=== PATIENT | female | born 1965 | race Caucasian/White ===

== ENCOUNTER 2016-11-07 18:11 | Inpatient (IN) | payer BC ==
--- NOTE | 2016-11-07 18:43 | ED PDOC ---
Arrival/HPI - General Chief Complaint: Syncope Time Seen by Provider: 11/07/16 18:12 Historian: Patient - History of Present Illness Narrative History of Present Illness (Text): 11/07/16 18:46 A 51 year old female, whose past medical history includes hypertension, presents to the emergency department for evaluation following syncopal episode early this afternoon, 6 hours prior to arrival. Patient states she was feeling dizzy while at work, sat down and passed out. Also reports blood pressure was low. Patient had a slight headache and discomfort, which she still has. Also feels slightly dizzy. Patient notes tongue felt heavy at that time and may had some slurred speech following the event. Denies any chest pain, palpitations, shortness of breath, visual disturbances or any other complaints at this time. No history of any trauma. Time/Duration: Other (6 hours) Symptom Onset: Sudden Symptom Course: Unchanged Context: Work Past Medical History - Provider Review Nursing Documentation Reviewed: Yes - Past History Past History: Non-Contributing - Infectious Disease Hx of Infectious Diseases: None - Tetanus Immunization Tetanus Immunization: Unknown - Cardiac Hx Cardiac Disorders: Yes Hx Hypertension: Yes - Pulmonary Hx Respiratory Disorders: No - Neurological Hx Neurological Disorder: Yes Hx Migraine: Yes Other/Comment: numbness on the face - HEENT Hx HEENT Disorder: No - Renal Hx Renal Disorder: No - Endocrine/Metabolic Hx Endocrine Disorders: No - Hematological/Oncological Hx Blood Disorders: No - Integumentary Hx Dermatological Disorder: No - Musculoskeletal/Rheumatological Hx Musculoskeletal Disorders: Yes Other/Comment: rib removed - Gastrointestinal Hx Gastrointestinal Disorders: No - Genitourinary/Gynecological Hx Genitourinary Disorders: No - Psychiatric Hx Psychophysiologic Disorder: No Hx Depression: No Hx Emotional Abuse: No Hx Physical Abuse: No Hx Substance Use: No - Surgical History Hx Appendectomy: Yes Hx Tonsillectomy: Yes Other/Comment: right 1st rib removed - Anesthesia Hx Anesthesia: Yes Hx Anesthesia Reactions: No Hx Malignant Hyperthermia: No - Suicidal Assessment Feels Threatened In Home Enviroment: No Family/Social History - Physician Review Nursing Documentation Reviewed: Yes Family/Social History: No Known Family HX Smoking Status: Never Smoked Hx Alcohol Use: No Hx Substance Use: No Hx Substance Use Treatment: No Allergies/Home Meds Allergies/Adverse Reactions: Allergies No Known Allergies Allergy (Verified 09/09/15 16:02) Home Medications: Home Meds Medication Instructions Recorded Confirmed Gabapentin [Neurontin] 600 mg PO BID 09/09/15 11/07/16 Losartan [Cozaar] 50 mg PO DAILY 09/09/15 11/07/16 tiZANidine [Zanaflex] 2 mg PO PRN PRN 09/09/15 11/07/16 Acetaminophen/Butalbital/Caf 1 tab PO DAILY PRN 11/07/16 11/07/16 [Fioricet] Zonisamide [Zonegran] 2 cap PO HS 11/07/16 11/07/16 Review of Systems - Physician Review All systems were reviewed & negative as marked: Yes - Review of Systems Eyes: absent: Vision Changes Respiratory: absent: SOB Cardiovascular: Syncope. absent: Chest Pain, Palpitations Neurological: Headache, Dizziness Physical Exam Vital Signs Reviewed: Yes Vital Signs Temp Pulse Resp BP Pulse Ox 11/07/16 20:11 75 17 124/80 99 11/07/16 18:18 97.7 F 78 18 127/82 98 Temperature: Afebrile Blood Pressure: Normal Pulse: Regular Respiratory Rate: Normal Appearance: Positive for: Well-Appearing, Non-Toxic, Comfortable Pain Distress: None Mental Status: Positive for: Alert and Oriented X 3 - Systems Exam Head: Present: Atraumatic, Normocephalic Pupils: Present: PERRL Extroacular Muscles: Present: EOMI Conjunctiva: Present: Normal Mouth: Present: Moist Mucous Membranes Neck: Present: Normal Range of Motion Respiratory/Chest: Present: Clear to Auscultation, Good Air Exchange. No: Respiratory Distress, Accessory Muscle Use Cardiovascular: Present: Regular Rate and Rhythm, Normal S1, S2. No: Murmurs Abdomen: Present: Normal Bowel Sounds. No: Tenderness, Distention, Peritoneal Signs Back: Present: Normal Inspection Upper Extremity: Present: Normal Inspection. No: Cyanosis, Edema Lower Extremity: Present: Normal Inspection. No: Edema Neurological: Present: GCS=15, CN II-XII Intact, Speech Normal Skin: Present: Warm, Dry, Normal Color. No: Rashes Psychiatric: Present: Alert, Oriented x 3, Normal Insight, Normal Concentration Medical Decision Making ED Course and Treatment: 11/07/16 18:36 Impression: A 51 year old female with dizziness and syncopal episode prior to arrival. Differential Diagnosis included but are not limited to: vasovagal syncope vs. cardiac arrhythmia vs. TIA vs. cerebral hemorrhage Plan: -- EKG -- chest xray -- CT head -- labs -- Reassess and disposition Prior Visits: Notes and results from previous visits were reviewed. Patient last reported to the emergency department on 09/09/15 for evaluation of left sided facial numbness, tingling and burning pain. Progress Notes: reviewed EKG, NSR at 66 bpm. Incomplete RBBB. Non-specific ST/T wave changes. 11/07/16 22:45 Reviewed radiology, CXR shows no acute processes. CT Head shows: matter disease. No edema. Ventricles: Unremarkable. No ventriculomegaly. Bones/joints: Unremarkable. No acute fracture. Soft tissues: Unremarkable. Sinuses: Unremarkable as visualized. No acute sinusitis. Mastoid air cells: Unremarkable as visualized. No mastoid effusion. IMPRESSION: No acute findings. 11/07/16 22:[address] Junior, who is aware and agrees with plan. Accepts pt in to her service. Pt will go to Telemetry observation for syncope. Requests Dr. Echeverria on consult. - Lab Interpretations Lab Results: 11/07/16 18:50 11/07/16 18:50 Lab Results 11/07/16 19:05: Urine Color Yellow, Urine Appearance Clear, Urine pH 6.5, Ur Specific Robbins <= 1.005, Urine Protein Negative, Urine Glucose (UA) Negative, Urine Ketones Negative, Urine Blood Negative, Urine Nitrate Negative, Urine Bilirubin Negative, Urine Urobilinogen 0.2, Ur Leukocyte Esterase Negative, Urine HCG, Qual Negative 11/07/16 18:50: WBC 8.1, RBC 3.66, Hgb 11.1 L, Hct 34.4 L, MCV 94.0, MCH 30.3, MCHC 32.3, RDW 14.4, Plt Count 264, MPV 10.6 11/07/16 18:50: Sodium 141, Potassium 4.0, Chloride 103, Carbon Dioxide 28, Anion Gap 14, BUN 13, Creatinine 0.6, Est GFR ( Amer) > 60, Est GFR (Non- Af Amer) > 60, Random Glucose 74, Calcium 9.2, Total Bilirubin 0.4, AST 43 H, ALT 37, Alkaline Phosphatase 103, Lactate Dehydrogenase 530, Total Creatine Kinase 60, Troponin I < 0.01, Total Protein 7.8, Albumin 4.3, Globulin 3.5, Albumin/Globulin Ratio 1.2 11/07/16 18:50: PT 10.5, INR 0.97, APTT 25.1 I have reviewed the lab results: Yes - RAD Interpretation Radiology Orders: 11/07/16 18:30 HEAD W/O CONTRAST [CT] Stat CHEST PORTABLE [RAD] Stat [employer] Custodian: ED Physician, Radiologist - EKG Interpretation Interpreted by ED Physician: Yes Type: 12 lead EKG - Medication Orders Current Medication Orders: Discontinued Medications Acetaminophen (Tylenol 325mg Tab) 650 mg PO STAT STA Stop: 11/07/16 21:41 Last Admin: 11/07/16 21:51 Dose: 650 mg - Scribe Statement The provider has reviewed the documentation as recorded by the Caleb Nicole Provider Scribe Attestation: All medical record entries made by the Sarahiibousmane were at my direction and personally dictated by me. I have reviewed the chart and agree that the record accurately reflects my personal performance of the history, physical exam, medical decision making, and the department course for this patient. I have also personally directed, reviewed, and agree with the discharge instructions and disposition. Disposition/Present on Arrival - Present on Arrival Any Indicators Present on Arrival: No History of DVT/PE: No History of Uncontrolled Diabetes: No Urinary Catheter: No History of Decub. Ulcer: No History Surgical Site Infection Following: None - Disposition Have Diagnosis and Disposition been Completed?: Yes Diagnosis: Syncope Disposition: HOSPITALIZED Disposition Time: 22:54 Patient Plan: Observation Condition: STABLE Discharge Instructions (ExitCare): Syncope (ED) Referrals: Manjeet Warren, [Non-Staff] - Follow up with primary
[2016-11-07 19:21] LABS: HEMOGLOBIN 11.1 gm/dL (12.0-16.0); MEAN CORPUSCULAR HEMOGLOBIN 30.3 pg (25.0-35.0); MEAN CORPUSCULAR HGB CONC 32.3 g/dl (31.0-37.0); MEAN PLATELET VOLUME 10.6 fl (7.0-11.0); RBC 3.66 10^6/uL (3.5-6.1); RED CELL DISTRIBUTION WIDTH 14.4 % (11.5-14.5); WHITE BLOOD COUNT 8.1 10^3/ul (4.5-11.0)
[2016-11-07 19:28] LABS: INR 0.97 (0.93-1.08); PARTIAL THROMBOPLASTIN TIME 25.1 Seconds (23.7-30.8); PROTHROMBIN TIME 10.5 Seconds (9.9-11.8)
[2016-11-07 19:35] LABS: ALB/GLOB RATIO 1.2 (1.1-1.8); ALBUMIN 4.3 g/dL (3.0-4.8); ALT/SGPT 37 U/L (7-56); AST/SGOT 43 U/L (15-39); BLOOD UREA NITROGEN 13 mg/dL (7-21); CALCIUM 9.2 mg/dL (8.4-10.5); GFR AFRICAN-AMERICAN > 60; GFR NON-AFRICAN AMERICAN > 60
[2016-11-07 19:38] LABS: HCG,QUALITATIVE URINE NEGATIVE (NEGATIVE); PH,URINE 6.5 (4.7-8.0); URINE APPEARANCE CLEAR (CLEAR); URINE BILIRUBIN NEGATIVE (NEGATIVE); URINE BLOOD NEGATIVE (NEGATIVE); URINE COLOR YELLOW (YELLOW); URINE GLUCOSE (UA) NEGATIVE (NEGATIVE); URINE LEUKOCYTE ESTERASE NEGATIVE Leu/uL (NEGATIVE); URINE NITRATE NEGATIVE (NEGATIVE); URINE PROTEIN NEGATIVE mg/dL (<30 mg/dL); URINE UROBILINOGEN 0.2 E.U./dL (<1 E.U./dL)
[2016-11-07 19:50] LABS: TROPONIN I < 0.01 ng/mL
[2016-11-08 01:41] VITALS: BMI 24.7
[2016-11-08] MEDS: Apap-Butalbital-Caffeine 325-50-40mg Tab PO PRN (08:17)
--- NOTE | 2016-11-08 08:28 | RAD ---
HISTORY: syncope COMPARISON: 09/09/2015 FINDINGS: LUNGS: No active pulmonary disease. PLEURA: No significant pleural effusion identified, no pneumothorax apparent. CARDIOVASCULAR: Normal. OSSEOUS STRUCTURES: No significant abnormalities. VISUALIZED UPPER ABDOMEN: Normal. OTHER FINDINGS: None. IMPRESSION: No active disease.
--- NOTE | 2016-11-08 08:46 | CT ---
PROCEDURE: CT HEAD WITHOUT CONTRAST. HISTORY: syncope COMPARISON: Prior head CT 09/09/2015 TECHNIQUE: Axial computed tomography images were obtained through the head/brain without intravenous contrast. Radiation dose: Total exam DLP = 853 mGy-cm. This CT exam was performed using one or more of the following dose reduction techniques: Automated exposure control, adjustment of the mA and/or kV according to patient size, and/or use of iterative reconstruction technique. FINDINGS: HEMORRHAGE: No intracranial hemorrhage. BRAIN: No mass effect or edema. No atrophy or chronic microvascular ischemic changes. VENTRICLES: Unremarkable. No hydrocephalus. CALVARIUM: Unremarkable. PARANASAL SINUSES: Resolution of prior left sphenoid sinusitis. MASTOID AIR CELLS: Unremarkable as visualized. No inflammatory changes. OTHER FINDINGS: None. IMPRESSION: Normal CT of the Head. No suspicious interval findings are appreciated and incidentally, prior left sphenoid sinusitis has resolved compared to prior head CT 09/09/2015. Preliminary report given by Jassi De Leon on 09/07/2016 at 21:43.
--- NOTE | 2016-11-08 09:37 | CP.PCM.CON ---
<Solomon Tyson - Last Filed: 11/08/16 14:42> History of Present Illness - History of Present Illness History of Present Illness: PGY-[address] Echeverria's Neurology Service: Reason for consult: syncope This is a 51 year old female with PMHx migraines (since age 6), HTN, unspecified lymph node malignancy who presented for evaluation of syncope in the afternoon. Patient felt dizzy at work and was about to get up. When patient got up, she lost consciousness and fell and hit her head on plastic garbage bins. Patient states that she felt lightheaded with a sensation of pressure diffusely around her head. Patient had numbness/tingling around the face bilaterally along with head pressure and weakness. Per EMR, patient has been seen in August 2015 for similar symptoms, but patient states that symptoms have been exacerbated recently within the past few weeks. 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 Patient was told that her blood pressure at the time was about 80/50. Per the chart, patient had some slurred speech but this has since resolved. At time of patient encounter this morning, patient reported that the symptoms have since subsided but still feels a bit lightheaded. Of note, patient was seen for similar symptoms in the past. Patient was prescribed Zonisamide which she has been taking for the past 2 weeks for these symptoms. 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 Family Hx: Father, nephew, and 1 more unknown family member with Brain Aneurysms Review of Systems - Constitutional Constitutional: absent: Headache, Weakness - Cardiovascular Cardiovascular: Lightheadedness. absent: Chest Pain - Respiratory Respiratory: absent: Dyspnea - Gastrointestinal Gastrointestinal: absent: Abdominal Pain, Nausea, Vomiting - Genitourinary Genitourinary: absent: Dysuria - Neurological Neurological: absent: Dizziness, Numbness, Headaches, Tingling, Weakness - Endocrine Endocrine: absent: Palpitations Past Patient History - Infectious Disease Hx of Infectious Diseases: None - Tetanus Immunizations Tetanus Immunization: Unknown - Past Social History Smoking Status: Never Smoked - CARDIAC Hx Hypertension: Yes - PULMONARY Hx Respiratory Disorders: No - NEUROLOGICAL Hx Neurological Disorder: Yes Hx Migraine: Yes Other/Comment: numbness on the face - HEENT Hx HEENT Problems: No - RENAL Hx Chronic Kidney Disease: No - ENDOCRINE/METABOLIC Hx Endocrine Disorders: No - HEMATOLOGICAL/ONCOLOGICAL Hx Blood Disorders: No - INTEGUMENTARY Hx Dermatological Problems: No - MUSCULOSKELETAL/RHEUMATOLOGICAL Hx Falls: Yes - GASTROINTESTINAL Hx Gastrointestinal Disorders: No - GENITOURINARY/GYNECOLOGICAL Hx Genitourinary Disorders: No - PSYCHIATRIC Hx Psychophysiologic Disorder: No Hx Depression: No Hx Emotional Abuse: No Hx Physical Abuse: No Hx Substance Use: No - SURGICAL HISTORY Hx Appendectomy: Yes Hx Tonsillectomy: Yes Other/Comment: right 1st rib removed - ANESTHESIA Hx Anesthesia: Yes Hx Anesthesia Reactions: No Hx Malignant Hyperthermia: No Meds Allergies/Adverse Reactions: Allergies Allergy/AdvReac Type Severity Reaction Status Date / Time No Known Allergies Allergy Verified 09/09/15 16:02 - Medications Medications: Current Medications Acetaminophen/Butalbital/Caffeine (Fioricet) 1 tab PO DAILY PRN PRN Reason: Migraine headache Last Admin: 11/08/16 08:17 Dose: 1 tab Gabapentin (Neurontin) 600 mg PO BID [facility] PRN Reason: Protocol Losartan Potassium (Cozaar) 50 mg PO DAILY [facility] Physical Exam - Constitutional Appears: Non-toxic, No Acute Distress - Head Exam Head Exam: ATRAUMATIC, NORMAL INSPECTION, NORMOCEPHALIC - Eye Exam Eye Exam: EOMI, PERRL - ENT Exam ENT Exam: Mucous Membranes Moist - Respiratory Exam Respiratory Exam: Clear to Auscultation Bilateral - Cardiovascular Exam Cardiovascular Exam: Bradycardia - GI/Abdominal Exam GI & Abdominal Exam: Normal Bowel Sounds - Neurological Exam Neurological exam: Alert, CN II-XII Intact (with exception of increased sensations in V1,V2,V3 regions on the right side of the face), Oriented x3 Additional comments: Manual muscle testing 5/5 bilateral upper and lower extremities. Reflexes 2/4 in right upper extremity. Reflexes 1/4 left upper extremity and bilateral lower extremities. No pronator drift. Normal finger-nose test. Down-going plantar responses. Sensations intact x 4 extremities. Results - Vital Signs Recent Vital Signs: Last Vital Signs Temp 98 F 11/08/16 06:00 Pulse 55 L 11/08/16 06:00 Resp 19 07/18/17 06:00 BP 119/74 11/08/16 06:00 Pulse Ox 97 11/08/16 06:00 - Labs Result Diagrams: 11/07/16 18:50 11/07/16 18:50 Assessment & Plan - Assessment and Plan (Free Text) Assessment: This is a 51 year old female with PMHx migraines (since age 6), HTN, unspecified lymph node malignancy who presented for evaluation of syncope. Syncopal episode likely due to episode of poor cerebral hypoperfusion secondary to episode of transient hypotension as well as ongoing episodes of bradycardia. CT head unremarkable for acute ischemic or hemorrhagic pathologies. Patient is chronically anemic. Patient's recent outpatient workup as noted below. MRA Neck-Carotid done 10/20/16 at [facility] 1) Kinking and coiling of the right cervical internal carotid artery. 2) Left carotid and both vertebral arteries in the neck show no evidence of stenosis or occlusive disease. MRA Head done 10/20/16 at [facility] 1) No significant intracranial arterial abnormalities seen. 2) No aneurysms are identified on present exam. Images are of limited resolution done on the open low field imaging system. Small aneurysms may not be demonstrated on present examination. 3) Recommend MR angiogram on a high-field high-resolution imaging system if there is high index of clinical suspicion of aneurysm. 4) Recommend MRI examination of brain for further evaluation. Plan: 1) Maintain adequate hydration. 2) Keep SBP between 120-130 mmHg. 3) Follow up MRI brain 4) Follow up MRA Head Case Discussed with Dr. Juwan Tyson PGY-1 - Date & Time Date: 11/08/16 Time: 09:51 <Romario Echeverria - Last Filed: 11/08/16 18:03> Meds - Medications Medications: Current Medications Acetaminophen/Butalbital/Caffeine (Fioricet) 1 tab PO DAILY PRN PRN Reason: Migraine headache Last Admin: 11/08/16 08:17 Dose: 1 tab Gabapentin (Neurontin) 600 mg PO BID [facility] PRN Reason: Protocol Last Admin: 11/08/16 09:52 Dose: 600 mg Valproate Sodium 500 mg/ (Sodium Chloride) 105 mls @ 100 mls/hr IVPB ONCE ONE Stop: 11/08/16 18:27 Magnesium Sulfate 2 gm/ Sodium (Chloride) 104 mls @ 102 mls/hr IVPB ONCE ONE Stop: 11/08/16 18:46 Losartan Potassium (Cozaar) 50 mg PO DAILY [facility] Last Admin: 11/08/16 09:53 Dose: 50 mg Results - Vital Signs Recent Vital Signs: Last Vital Signs Temp 97.3 F L 11/08/16 11:33 Pulse 56 L 11/08/16 11:33 Resp 20 11/08/16 11:33 BP 108/71 11/08/16 11:33 Pulse Ox 97 11/08/16 06:00 - Labs Result Diagrams: 11/07/16 18:50 11/07/16 18:50 Attending/Attestation - Attestation I have personally seen and examined this patient.: Yes I have fully participated in the care of the patient.: Yes I have reviewed all pertinent clinical information: Yes Notes (Text): 11/08/16 18:00 SYNCOPE SEC TO TRANSIENT CEREBRAL HYPOPERFUSION/POSSIBLY BRADYCARDIA. -SHE HAS ACTIVE MIGRAINES AND GAVE HER COCKTAIL OF SOLUMERDROL 500MG IV, VALPROIC ACID 500MG IV SLOWLY INFUSED UNDER 60 MINUTES, BENADRYL 50 MG IV, 2 GM MG SULPHATE, AND ZOFRAN IV 4 MNG X 1 DOSE OF EACH AND WILL REPEAT TWICE TO DAY., -C/W ZONEGRAM FOR HER MIGRAINES AND FOLLOW UP OUTPATIENT WITH ME. NEUROLOGICALLY STABLE. Harmeet ECHEVERRIA MD
[2016-11-08] MEDS ORDERED: Valproate 500 MG in Sodium Chloride 0.9% 100 ML IVPB ONE ×2 (11:47→17:25)
[2016-11-08] MEDS ORDERED: DiphenhydrAMINE 50 mg/ml Inj IVP ONE ×2 (11:48→17:19)
[2016-11-08] MEDS ORDERED: methylPREDNISolone 500 MG in Sodium Chloride 0.9% 100 ML IVPB ONE ×2 (11:49→17:27)
[2016-11-08] MEDS ORDERED: Magnesium Sulfate 1 gm in D5W 1 GM/100 ML BAG IVPB ONE ×2 (11:50→17:16)
[2016-11-08] MEDS ORDERED: Gadodiamide 287 MG/ML VIAL (15ML) IV ONE (16:24)
--- NOTE | 2016-11-08 16:48 | MRI ---
PROCEDURE: Magnetic Resonance Angiography Brain HISTORY: SYNCOPE MIGRAINE COMPARISON: None available. TECHNIQUE: 3D time of flight MR angiography of the intracranial arteries was performed. Rotating maximum intensity projection images were generated. FINDINGS: INTERNAL CEREBRAL ARTERIES: Unremarkable. The skull base, petrous, cavernous and supraclinoid segments are bilaterally widely patient. ANTERIOR CEREBRAL ARTERIES: There is a small hypoplastic left A1 segment. The anterior cerebral is are supplied from the right side. MIDDLE CEREBRAL ARTERIES: Unremarkable. M1 and M2 segments are widely patent. Perisylvian branches grossly symmetric. POSTERIOR CIRCULATION: Basilar Artery: Unremarkable. Distal Vertebral Arteries: Unremarkable. Posterior Cerebral Arteries: Left posterior cerebral artery arises from the left internal carotid Posterior Inferior Cerebellar Arteries: Unremarkable. ANEURYSM/ VASCULAR MALFORMATIONS: None. OTHER FINDINGS: None. IMPRESSION: Unremarkable MR angiography of the brain.
--- NOTE | 2016-11-08 16:51 | MRI ---
PROCEDURE: MRI BRAIN WITH AND WITHOUT CONTRAST HISTORY: MIGRAINES SYNCOPE COMPARISON: None. TECHNIQUE: Multiplanar, multisequence MR images of the brain were obtained with and without intravenous contrast enhancement. 15 cc of Omniscan FINDINGS: HEMORRHAGE: None DWI: No evidence of an acute or early subacute infarction. BRAIN PARENCHYMA: No mass,mass effect or edema. No atrophy or chronic microvascular ischemic changes. ENHANCEMENT: No abnormal intracranial enhancement. VENTRICLES: Unremarkable. No hydrocephalus. CRANIUM: Unremarkable. ORBITS: Grossly unremarkable. PARANASAL SINUSES/MASTOIDS: Clear VASCULAR SYSTEM: Skull base flow voids intact. OTHER FINDINGS: None . IMPRESSION: Unremarkable pre and post contrast enhanced MRI of the brain.
[2016-11-08] MEDS ORDERED: Magnesium Sulfate 2 GM in Sodium Chloride 0.9% 100 ML IVPB ONE (17:45)
--- NOTE | 2016-11-08 23:58 | CARD ---
APPROVED REPORT EKG Measurement Heart [id number] <Conclusion> Normal sinus rhythm Incomplete right bundle branch block Borderline ECG
[2016-11-09 07:12] LABS: HEMOGLOBIN 11.6 gm/dL (12.0-16.0); MEAN CELL VOLUME 94.1 fL (80.0-105.0); MEAN CORPUSCULAR HEMOGLOBIN 29.6 pg (25.0-35.0); MEAN CORPUSCULAR HGB CONC 31.4 g/dl (31.0-37.0); MEAN PLATELET VOLUME 10.4 fl (7.0-11.0); RBC 3.92 10^6/uL (3.5-6.1); RED CELL DISTRIBUTION WIDTH 14.5 % (11.5-14.5); WHITE BLOOD COUNT 5.2 10^3/ul (4.5-11.0)
--- NOTE | 2016-11-09 07:18 | HP ---
CHIEF COMPLAINT: Syncopal attack. HISTORY OF PRESENT ILLNESS: The patient is a 51-year-old female with past medical history of hypertension, came to the emergency department for syncopal attack. The patient states she was feeling dizzy while at work, sat down ,and passed out. Also reports blood pressure was low at that moment, otherwise she has history of hypertension. Had headache and discomfort and still feels dizzy. According to the patient, she is feeling her tongue is heavy and numb and sometimes slurring of speech followed by this event. No chest pain or palpitation. No visual disturbances. No nausea, vomiting, or diarrhea. No history of trauma. PAST MEDICAL HISTORY: Hypotension, migraine, numbness of the face, history of rib removed, appendectomy and tonsillectomy, right first rib removed. FAMILY HISTORY: Father and mother noncontributory. HABITS: Never smoked. No drugs. No ethanol. ALLERGIES: The patient is not allergic to any medication. HOME MEDICATIONS: Neurontin, Cozaar, Xanax, Celexa, Florocid, Zonegran. REVIEW OF SYSTEMS: The patient was examined on the bedside in the telemetry, still complaining of sometime dizzy, numbness of the tongue and lips, sometime headaches. No shortness of breath. No nausea, vomiting or diarrhea. No hematuria, hematochezia. No swelling of the legs. No chest pain. PHYSICAL EXAMINATION: VITAL SIGNS: Temperature 97.6, pulse 72, blood pressure 108/71 and respiratory rate 20. HEENT: Head is normocephalic and atraumatic. Eyes PERRLA. EOMs intact. Conjunctivae clear. Nose patent. Mucous membranes moist. NECK: Supple. No carotid bruit or thyromegaly. CHEST: Bilaterally symmetrical. HEART: S1 and S2 positive. LUNGS: Clear to auscultation. ABDOMEN: Soft. Bowel sounds present. No organomegaly. EXTREMITIES: No edema, no cyanosis. NEUROLOGIC: The patient is awake and alert. Moving all 4 extremities. No focal deficit. LABORATORY DATA: White blood cells 8.1, hemoglobin 11.1, hematocrit 34.4, platelets 14.4. Sodium 141, potassium 4.0, BUN 13, creatinine 0.6, glucose of 95, AST 43. ASSESSMENT AND PLAN: The patient is a 51-year-old lady with abnormal liver function test, anemia, came with syncopal attack, underwent CAT scan of the head, brain MRI and head MRA, seen by the neurologist, Dr. Romario Echeverria. History of migraine, hypotension, unspecified lymph node malignancy, history of right first rib removal, thoracic outlet syndrome, history of splenectomy. According to Dr. Echeverria, syncopal episode looks like due to poor cerebral hypoperfusion and second episode of transient hypotension as well as ongoing episodes of bradycardia. CT scan of head is unremarkable for acute ischemia or hemorrhagic pathology. MRA of the neck showed , radiology kinking and widening of the right cervical internal carotid artery, left carotid artery and both vertebral arteries in the neck show no evidence of stenosis or obstruction. MRA of the head done on 10/20/2016, shows no significant intracranial arterial abnormalities. No aneurysm. Recommending MR angiogram on the high resolution. Reviewed Dr. Romario Echeverria's notes. We will follow up. Alana Junior MD ALFREDO
[2016-11-09 07:36] LABS: BLOOD UREA NITROGEN 11 mg/dL (7-21); CALCIUM 9.3 mg/dL (8.4-10.5); GFR AFRICAN-AMERICAN > 60; GFR NON-AFRICAN AMERICAN > 60; HDL CHOLESTEROL 67 mg/dL (29-60)
[2016-11-09 07:46] LABS: % IRON SATURATION 48 % (20-55); IRON 157 ug/dL (45-180); TOTAL IRON BINDING CAPACITY 325 ug/dL (265-497)
[2016-11-09 07:47] LABS: LDL CHOLESTEROL 97 mg/dL (0-129)
[2016-11-09] MEDS: Apap-Butalbital-Caffeine 325-50-40mg Tab PO PRN ×2 (08:00→20:05)
--- NOTE | 2016-11-09 10:31 | CP.PCM.PN ---
Subjective - Date & Time of Evaluation Date of Evaluation: 11/09/16 Time of Evaluation: 10:10 - Subjective Subjective: PGY-1 Neurology Progress note for Dr. Echeverria: CC: dizziness and headache Patient seen and examined at bedside. Complains of feeling dizzy and states that her migraine symptoms have returned at the same intensity as yesterday. Also complains of right sided facial numbness. Denies changes in vision, weakness. Objective - Vital Signs/Intake and Output Vital Signs (last 24 hours): Temp Pulse Resp BP Pulse Ox 98.2 F 61 18 82/52 L 95 11/09/16 06:00 11/09/16 09:19 11/09/16 09:00 11/09/16 09:19 11/09/16 09:00 Intake and Output: 11/09/16 11/09/16 06:59 18:59 Intake Total 540 Output Total 300 Balance 240 - Medications Medications: Current Medications Acetaminophen/Butalbital/Caffeine (Fioricet) 1 tab PO DAILY PRN PRN Reason: Migraine headache Last Admin: 11/09/16 08:00 Dose: 1 tab Gabapentin (Neurontin) 600 mg PO BID IAN PRN Reason: Protocol Last Admin: 11/09/16 10:02 Dose: 600 mg Sodium Chloride (Sodium Chloride 0.9%) 1,000 mls @ 100 mls/hr IV .Q10H IAN Stop: 11/10/16 23:59 Losartan Potassium (Cozaar) 50 mg PO DAILY [facility] Last Admin: 11/09/16 09:19 Dose: Not Given Zonisamide (Zonegran) 100 mg PO HS IAN - Labs Labs: 11/09/16 06:30 11/09/16 06:30 PT 10.5 Seconds (9.9-11.8) 11/07/16 18:50 INR 0.97 (0.93-1.08) 11/07/16 18:50 APTT 25.1 Seconds (23.7-30.8) 11/07/16 18:50 - Constitutional Appears: Non-toxic, No Acute Distress - Head Exam Head Exam: ATRAUMATIC, NORMAL INSPECTION, NORMOCEPHALIC - Eye Exam Eye Exam: EOMI, PERRL - ENT Exam ENT Exam: Mucous Membranes Moist - Respiratory Exam Respiratory Exam: Clear to Ausculation Bilateral - Cardiovascular Exam Cardiovascular Exam: REGULAR RHYTHM - GI/Abdominal Exam GI & Abdominal Exam: Normal Bowel Sounds - Neurological Exam Neurological Exam: Alert, Awake, CN II-XII Intact (except for decreased sensation on the right side of the face), Oriented x3 Additional comments: Manual muscle testing 5/5 bilateral upper and lower extremities. Reflexes 2/4 in right upper extremity. Reflexes 1/4 left upper extremity and bilateral lower extremities. No pronator drift. Normal finger-nose test. Down-going plantar responses. Sensations intact x 4 extremities. Assessment and Plan - Assessment and Plan (Free Text) Assessment: This is a 51 year old female with PMHx migraines (since age 6), HTN, unspecified lymph node malignancy who presented for evaluation of syncope. Syncopal episode likely due to episode of poor cerebral hypoperfusion secondary to episode of transient hypotension as well as ongoing episodes of bradycardia. CT head unremarkable for acute ischemic or hemorrhagic pathologies. Patient is chronically anemic. Patient's recent workup as noted below. Evidence of orthostatic hypotension as seen in the vitals taken in the morning. MRA Head and MRI brain done in [facility] on 11/08/16 were unremarkable. MRA Neck-Carotid done 10/20/16 at [facility] 1) Kinking and coiling of the right cervical internal carotid artery. 2) Left carotid and both vertebral arteries in the neck show no evidence of stenosis or occlusive disease. MRA Head done 10/20/16 at [facility] 1) No significant intracranial arterial abnormalities seen. 2) No aneurysms are identified on present exam. Images are of limited resolution done on the open low field imaging system. Small aneurysms may not be demonstrated on present examination. 3) Recommend MR angiogram on a high-field high-resolution imaging system if there is high index of clinical suspicion of aneurysm. 4) Recommend MRI examination of brain for further evaluation. Plan: 1) Maintain adequate hydration. 2) Keep SBP between 120-130 mmHg. 3) Follow up echocardiogram. 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 6) Neurontin increased frequency to 600 mg TID 7) Restarted home medication Zonisamide Case Discussed with Dr. Juwan Tyson PGY-1
[2016-11-09] MEDS ORDERED: DiphenhydrAMINE 50 mg/ml Inj IVP STA (10:33)
[2016-11-09] MEDS ORDERED: Valproate 500 MG in Sodium Chloride 0.9% 100 ML IVPB ONE (10:33)
[2016-11-09] MEDS: Sodium Chloride 0.9% 1,000 ML IV SCH (11:45)
[2016-11-09 12:52] LABS: FOLATE 6.3 ng/mL
--- NOTE | 2016-11-09 16:36 | CARD ---
APPROVED REPORT EXAM: Two-dimensional and M-mode echocardiogram with Doppler and color Doppler. INDICATION Syncope R/O STRUCTURAL HEART DISEASE 2D DIMENSIONS Left Atrium (2D)4.3 (1.6-4.0cm)IVSd0.9 (0.7-1.1cm) LVDd4.5 (3.9-5.9cm)PWd0.9 (0.7-1.1cm) LVDs3.2 (2.5-4.0cm)FS (%) 27.8 % LVEF (%)54.0 (>50%) M-Mode DIMENSIONS Aortic Root3.70 (2.2-3.7cm)Aortic Cusp Exc.2.10 (1.5-2.0cm) Aortic Valve AoV Peak Wlcimbpq992.0cm/[place] Peak GR.6mmHg Mitral Valve MV E Mgilgahf54.2cm/sMV A Yncbrugi40.2cm/sE/A ratio1.0 TDI Lateral E' Peak V7.90cm/sMedial E' Peak V7.41cm/sE/Lateral E'7.9 E/Medial E'8.4 Pulmonary Valve PV Peak Dvfmnshk35.9cm/sPV Peak Grad.1mmHg Tricuspid Valve TR Peak Mfurdnfz594fm/sRAP UXSYVEPU36kmNdOS Peak Gr.23mmHg [id number] LEFT VENTRICLE The left ventricle is normal size. There is normal left ventricular wall thickness. The left ventricular function is normal.EF-55 There is normal LV segmental wall motion. Transmitral Doppler flow pattern is Grade III-reversible restrictive diastolic dysfunction. No left ventricle thrombus noted on this study. There is no ventricular septal defect visualized. There is no left ventricular aneurysm. There is no mass noted in the left ventricle. RIGHT VENTRICLE The right ventricle is normal size. There is normal right ventricular wall thickness. The right ventricular systolic function is normal. ATRIA The left atrium is mildly dilated. The right atrium is borderline dilated. The interatrial septum is intact with no evidence for an atrial septal defect. AORTIC VALVE The aortic valve is thickened but opens well. There is trace aortic regurgitation. There is no aortic valvular stenosis. There is no aortic valvular vegetation. MITRAL VALVE The mitral valve is thickened but opens well. Mitral annular calcification is mild. Mitral regurgitation is trace to mild. There is no mitral valve stenosis. There is no evidence of mitral valve prolapse. TRICUSPID VALVE The tricuspid valve leaflets are thickened , but open well. There is trace to mild tricuspid regurgitation.RVSP-33 mof h g. There is no tricuspid valve stenosis. There is no tricuspid valve prolapse or vegetation. PULMONIC VALVE The pulmonary valve is normal in structure. There is no pulmonic valvular regurgitation. There is no pulmonic valvular stenosis. GREAT VESSELS The aortic root is normal in size. The ascending aorta is normal in size. The pulmonary artery is normal. The IVC is normal in size and collapses >50% with inspiration. PERICARDIAL EFFUSION There is no pleural effusion. There is no pericardial effusion. <Conclusion> The left ventricle is normal size. There is normal left ventricular wall thickness. The left ventricular function is normal.EF-55 There is normal LV segmental wall motion. There is trace aortic regurgitation. Mitral regurgitation is trace to mild. There is trace to mild tricuspid regurgitation.RVSP-33 mof h g. The IVC is normal in size and collapses >50% with inspiration. There is no pericardial effusion. No thrombus or vegetation noted.
--- NOTE | 2016-11-09 21:59 | CP.PCM.PN ---
Subjective - Date & Time of Evaluation Date of Evaluation: 11/09/16 Time of Evaluation: 10:00 - Subjective Subjective: Patient seen and examined at bedside. Complains of feeling dizzy and states that her migraine symptoms have returned at the same intensity as yesterday. Also complains of right sided facial numbness. Denies changes in vision, weakness. no n.v , got Echo today . d/d with dr Echeverria and his team , treatment plan d/d with pt Objective - Vital Signs/Intake and Output Vital Signs (last 24 hours): Temp Pulse Resp BP Pulse Ox 96.8 F L 69 16 97/65 L 95 11/09/16 20:46 11/09/16 20:46 11/09/16 20:46 11/09/16 20:46 11/09/16 09:00 Intake and Output: 11/09/16 11/10/16 18:59 06:59 Intake Total 540 Output Total 300 Balance 240 - Medications Medications: Current Medications Acetaminophen/Butalbital/Caffeine (Fioricet) 1 tab PO Q4H PRN PRN Reason: migraine Last Admin: 11/09/16 20:05 Dose: 1 tab Gabapentin (Neurontin) 600 mg PO TID IAN PRN Reason: Protocol Last Admin: 11/09/16 17:07 Dose: 600 mg Sodium Chloride (Sodium Chloride 0.9%) 1,000 mls @ 100 mls/hr IV .Q10H IAN Stop: 11/10/16 23:59 Last Admin: 11/09/16 11:45 Dose: 100 mls/hr Losartan Potassium (Cozaar) 50 mg PO DAILY IAN Last Admin: 11/09/16 09:19 Dose: Not Given Metoclopramide HCl (Reglan) 10 mg IVP ACHS IAN Last Admin: 11/09/16 21:15 Dose: 10 mg Zonisamide (Zonegran) 100 mg PO HS IAN Last Admin: 11/09/16 21:15 Dose: 100 mg - Labs Labs: 11/09/16 06:30 11/09/16 06:30 PT 10.5 Seconds (9.9-11.8) 11/07/16 18:50 INR 0.97 (0.93-1.08) 11/07/16 18:50 APTT 25.1 Seconds (23.7-30.8) 11/07/16 18:50 - Constitutional Appears: Well - Head Exam Head Exam: ATRAUMATIC, NORMAL INSPECTION, NORMOCEPHALIC - Eye Exam Eye Exam: EOMI, Normal appearance, PERRL Pupil Exam: NORMAL ACCOMODATION, PERRL - ENT Exam ENT Exam: Normal External Ear Exam - Neck Exam Neck Exam: Full ROM, Normal Inspection. absent: Lymphadenopathy - Respiratory Exam Respiratory Exam: Clear to Ausculation Bilateral, NORMAL BREATHING PATTERN - Cardiovascular Exam Cardiovascular Exam: REGULAR RHYTHM, +S1, +S2. absent: Murmur - GI/Abdominal Exam GI & Abdominal Exam: Soft, Normal Bowel Sounds. absent: Tenderness - Extremities Exam Extremities Exam: Full ROM, Normal Capillary Refill, Normal Inspection. absent : Joint Swelling, Pedal Edema - Back Exam Back Exam: NORMAL INSPECTION - Neurological Exam Neurological Exam: Alert, Awake, CN II-XII Intact, Normal Gait, Oriented x3 - Psychiatric Exam Psychiatric exam: Normal Affect, Normal Mood - Skin Skin Exam: Dry, Intact, Normal Color, Warm Assessment and Plan (1) Migraine Status: Acute (2) Anemia Status: Acute (3) Lymph node cancer Status: Acute (4) H/O: HTN (hypertension) Status: Acute (5) Orthostatic hypertension Status: Acute (6) Bradycardia Status: Acute - Assessment and Plan (Free Text) Assessment: This is a 51 year old female with PMHx migraines (since age 6), HTN, unspecified lymph node malignancy who presented for evaluation of syncope. Syncopal episode likely due to episode of poor cerebral hypoperfusion secondary to episode of transient hypotension as well as ongoing episodes of bradycardia. CT head unremarkable for acute ischemic or hemorrhagic pathologies. Patient is chronically anemic. Patient's recent workup as noted below. Evidence of orthostatic hypotension as seen in the vitals taken in the morning. Plan: 1) Maintain adequate hydration. 2) Keep SBP between 120-130 mmHg. 3) Follow up echocardiogram. Patient is also receiving 24H Holter Monitor 4) Follow up boat loader recommendations 5) Combination of Benadryl 50 mg, Valproic Acid 500 mg, Reglan 10 mg, Toradol 30mg IV for abortive therapy for migraines. 6) Neurontin increased frequency to 600 mg TID 7) Restarted home medication Zonisamide d/d with dr echeverria team ,
[2016-11-10] MEDS: Sodium Chloride 0.9% 1,000 ML IV SCH ×3 (01:18→15:55)
[2016-11-10] MEDS: Apap-Butalbital-Caffeine 325-50-40mg Tab PO PRN ×4 (05:46→23:59)
[2016-11-10 07:12] LABS: ALB/GLOB RATIO 1.1 (1.1-1.8); ALBUMIN 3.5 g/dL (3.0-4.8); ALT/SGPT 32 U/L (7-56); AST/SGOT 33 U/L (15-39); BLOOD UREA NITROGEN 12 mg/dL (7-21); CALCIUM 8.7 mg/dL (8.4-10.5); GFR AFRICAN-AMERICAN > 60; GFR NON-AFRICAN AMERICAN > 60
[2016-11-10 07:28] LABS: BASO # 0.02 K/mm3 (0.0-2.0); BASO % 0.2 % (0.0-3.0); EOS % 0.2 % (1.5-5.0); GRAN # 3.83 (1.4-6.5); GRAN % 35.1 % (50.0-68.0); HEMOGLOBIN 10.6 gm/dL (12.0-16.0); LYMPH % 55.1 % (22.0-35.0); MEAN CORPUSCULAR HEMOGLOBIN 30.2 pg (25.0-35.0); MEAN CORPUSCULAR HGB CONC 31.5 g/dl (31.0-37.0); MEAN PLATELET VOLUME 11.6 fl (7.0-11.0); MONO % 9.4 % (1.0-6.0); PLATELET COUNT 261 10^3/uL (120.0-450.0); RBC 3.51 10^6/uL (3.5-6.1); RED CELL DISTRIBUTION WIDTH 14.9 % (11.5-14.5); WHITE BLOOD COUNT 10.9 10^3/ul (4.5-11.0)
--- NOTE | 2016-11-10 07:54 | CON ---
DATE: 11/09/2016 CONSULT SERVICE: Cardiology. REASON FOR CONSULTATION: Syncopal episodes. 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 Yesterday, had a syncopal episode in office, brought here. Cardiology consult was called for evaluation. The patient says that she parked her car and went to the office and felt that she was going to have headache. She felt that she would start migraine and blurring of the vision, then patient completely passed out and had no recollection of when she gained conscious. The office *------* tried to wake her up. At that time, noticed the blood pressure was 80 and pulse was not recordable, so 911 was called and the patient was brought here. Patient denies any chest pain, denies any shortness of breath, denies any palpitations. 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 PAST SURGICAL HISTORY: Significant as mentioned; removal of first rib because of the superior vena cava syndrome thoracic outlet obstruction, superior vena cava syndrome, blood clot, history of tonsillectomy, history of appendectomy, history of breast reduction surgery in the past, history of lymph node biopsy 4 years ago, suspicious for malignancy, but found to be negative. FAMILY HISTORY: Significant for coronary artery disease, father and mother both had significant coronary artery disease, premature coronary artery disease in the family. SOCIAL HISTORY: Denies any history of alcohol abuse. ALLERGIES: NO KNOWN DRUG ALLERGY. CURRENT MEDICATIONS: Patient is on Neurontin, Cozaar for high blood pressure, Xanax, Celexa and Zonegran for migraine. REVIEW OF SYSTEMS: 14-point review of systems as per HPI. PHYSICAL EXAMINATION: VITAL SIGNS: Temperature afebrile. Heart rate 61, blood pressure 110/47. HEENT: PERRLA. Extraocular muscles are intact. NECK: Supple. No carotid bruit. No thyromegaly. CHEST: Clear to auscultation. HEART: S1 and S2 regular. ABDOMEN: Soft. EXTREMITIES: Clubbing and cyanosis negative. LABORATORY DATA: Blood workup as follows. WBC 5.2, hemoglobin 11.6, hematocrit 36.9, platelet count 280. Chemistry shows sodium 140, potassium 4.4, chloride 109, carbon dioxide 24, anion gap of 15, BUN 11, creatinine 0.5. IMPRESSION: Syncope, rule out vasovagal, rule out orthostatic hypotension, rule out structural heart disease. RECOMMENDATION: We will do orthostatic hypotension, add lipid profile, TSH, hemoglobin A1c, echo to rule out any structural heart disease and further recommendation after orthostatic change. Suggested stress test *------* risk factor for coronary artery disease. Family history is significant for coronary artery disease, suggest a stress test as outpatient. We will also put Holter monitor to rule out any bradyarrhythmia. We will follow with you. Thank you *------* for the opportunity of taking care of Gómez Juarez. Alba Gonzalez MD
[2016-11-10] MEDS ORDERED: methylPREDNISolone 500 MG in Sodium Chloride 0.9% 100 ML IVPB ONE (14:38)
[2016-11-10] MEDS ORDERED: DiphenhydrAMINE 50 mg/ml Inj IM ONE (14:39)
--- NOTE | 2016-11-10 15:12 | CP.PCM.PN ---
<Solomon Tyson - Last Filed: 11/10/16 15:08> Subjective - Date & Time of Evaluation Date of Evaluation: 11/10/16 Time of Evaluation: 10:00 - Subjective Subjective: PGY-1 Neurology Progress note for Dr. Echeverria: CC: dizziness and headache This morning the patient complains of feeling slightly dizzy with return of migraines. Also complains of the right sided facial numbness associated. Denies changes in vision, weakness. Objective - Vital Signs/Intake and Output Vital Signs (last 24 hours): Temp Pulse Resp BP Pulse Ox 98.2 F 55 L 16 143/84 97 11/10/16 12:00 11/10/16 12:00 11/10/16 12:00 11/10/16 12:00 11/10/16 05:42 Intake and Output: 11/10/16 11/10/16 06:59 18:59 Intake Total 2240 Balance 2240 - Medications Medications: Current Medications Acetaminophen/Butalbital/Caffeine (Fioricet) 1 tab PO Q4H PRN PRN Reason: migraine Last Admin: 11/10/16 12:34 Dose: 1 tab Famotidine (Pepcid) 40 mg PO HS IAN Gabapentin (Neurontin) 600 mg PO TID IAN PRN Reason: Protocol Last Admin: 11/10/16 10:41 Dose: 600 mg Sodium Chloride (Sodium Chloride 0.9%) 1,000 mls @ 100 mls/hr IV .Q10H IAN Stop: 11/11/16 23:59 Last Admin: 11/10/16 07:50 Dose: 100 mls/hr Metoclopramide HCl (Reglan) 10 mg IVP ACHS IAN Last Admin: 11/10/16 12:29 Dose: 10 mg Zonisamide (Zonegran) 100 mg PO HS IAN Last Admin: 11/09/16 21:15 Dose: 100 mg - Labs Labs: 11/10/16 06:38 11/10/16 06:38 PT 10.5 Seconds (9.9-11.8) 11/07/16 18:50 INR 0.97 (0.93-1.08) 11/07/16 18:50 APTT 25.1 Seconds (23.7-30.8) 11/07/16 18:50 - Constitutional Appears: Non-toxic, No Acute Distress - Head Exam Head Exam: ATRAUMATIC, NORMAL INSPECTION, NORMOCEPHALIC - Eye Exam Eye Exam: EOMI, PERRL - ENT Exam ENT Exam: Mucous Membranes Moist - Respiratory Exam Respiratory Exam: Clear to Ausculation Bilateral - Cardiovascular Exam Cardiovascular Exam: REGULAR RHYTHM - GI/Abdominal Exam GI & Abdominal Exam: Normal Bowel Sounds - Neurological Exam Neurological Exam: Alert, Awake, CN II-XII Intact (except for decreased sensations on the right side of her face), Oriented x3 Additional comments: Manual muscle testing 5/5 bilateral upper and lower extremities. Reflexes 2/4 in right upper extremity. Reflexes 1/4 left upper extremity and bilateral lower extremities. No pronator drift. Normal finger-nose test. Down-going plantar responses. Sensations intact x 4 extremities. Assessment and Plan - Assessment and Plan (Free Text) Assessment: This is a 51 year old female with PMHx migraines (since age 6), HTN, unspecified lymph node malignancy who presented for evaluation of syncope. Syncopal episode likely due to episode of poor cerebral hypoperfusion secondary to episode of transient hypotension as well as ongoing episodes of bradycardia. CT head unremarkable for acute ischemic or hemorrhagic pathologies. Patient is chronically anemic. Patient's recent workup as noted below. Evidence of orthostatic hypotension. Echocardiogram showed EF 54%. MRA Head and MRI brain done in [facility] on 11/08/16 were unremarkable. MRA Neck-Carotid done 10/20/16 at [facility] 1) Kinking and coiling of the right cervical internal carotid artery. 2) Left carotid and both vertebral arteries in the neck show no evidence of stenosis or occlusive disease. MRA Head done 10/20/16 at [facility] 1) No significant intracranial arterial abnormalities seen. 2) No aneurysms are identified on present exam. Images are of limited resolution done on the open low field imaging system. Small aneurysms may not be demonstrated on present examination. 3) Recommend MR angiogram on a high-field high-resolution imaging system if there is high index of clinical suspicion of aneurysm. 4) Recommend MRI examination of brain for further evaluation. Plan: 1) Maintain adequate hydration. 2) Keep SBP between 120-130 mmHg. 3) Follow up 24H Holter Monitor 4) Follow up poultry vaccinator recommendations 5) Combination of Benadryl 50 mg, Solumedrol 500 mg, Zofran 4 mg, Toradol 30mg IV for abortive therapy for migraines. 6) Neurontin 600 mg TID 7) Continue Zonisamide 8) Fioricet 1 tab Q4H prn migraine Case Discussed with Dr. Juwan Tyson PGY-1 <Romario Echeverria - Last Filed: 11/10/16 15:28> Objective - Vital Signs/Intake and Output Vital Signs (last 24 hours): Temp Pulse Resp BP Pulse Ox 98.2 F 55 L 16 143/84 97 11/10/16 12:00 11/10/16 12:00 11/10/16 12:00 11/10/16 12:00 11/10/16 05:42 Intake and Output: 11/10/16 11/10/16 06:59 18:59 Intake Total 2240 Balance 2240 - Medications Medications: Current Medications Acetaminophen/Butalbital/Caffeine (Fioricet) 1 tab PO Q4H PRN PRN Reason: migraine Last Admin: 11/10/16 12:34 Dose: 1 tab Famotidine (Pepcid) 40 mg PO HS IAN Gabapentin (Neurontin) 600 mg PO TID IAN PRN Reason: Protocol Last Admin: 11/10/16 10:41 Dose: 600 mg Sodium Chloride (Sodium Chloride 0.9%) 1,000 mls @ 100 mls/hr IV .Q10H IAN Stop: 11/11/16 23:59 Last Admin: 11/10/16 07:50 Dose: 100 mls/hr Metoclopramide HCl (Reglan) 10 mg IVP ACHS IAN Last Admin: 11/10/16 12:29 Dose: 10 mg Zonisamide (Zonegran) 100 mg PO HS IAN Last Admin: 11/09/16 21:15 Dose: 100 mg - Labs Labs: 11/10/16 06:38 11/10/16 06:38 PT 10.5 Seconds (9.9-11.8) 11/07/16 18:50 INR 0.97 (0.93-1.08) 11/07/16 18:50 APTT 25.1 Seconds (23.7-30.8) 11/07/16 18:50 Attending/Attestation - Attestation I have personally seen and examined this patient.: Yes I have fully participated in the care of the patient.: Yes I have reviewed all pertinent clinical information, including history, physical exam and plan: Yes Notes (Text): WILL F/U OUT PATIENT. 11/10/16 15:27
--- NOTE | 2016-11-10 18:24 | PN ---
REASON FOR CONSULTATION: Followup syncopal episode, orthostatic hypotension, rule out arrhythmia. BRIEF CLINIC HISTORY: A 51-year-old female with a past history of migraine, admitted after syncopal episode. The patient yesterday had orthostatic hypotension, dropped blood pressure 20 to 30 mm standing. IV fluid was given, but still the patient is orthostatic 20 mm drop in systolic pressure. Denies any chest pain, shortness of breath, or any palpitation. PHYSICAL EXAMINATION: As follows; VITAL SIGNS: Temperature afebrile, heart rate 55, blood pressure 142/84. HEENT: PERRLA, intact. NECK: Supple. No carotid bruit, no thyromegaly. CHEST: Clear to auscultation. HEART: S1 and S2, regular. ABDOMEN: Soft. EXTREMITIES: Clubbing and cyanosis negative. Orthostatic blood pressure recorded as follows; lying blood pressure 143/84, sitting 121/80, on standing 124/78, 20 mm drop in blood pressure still on standing. *------* orthostatic hypotension, syncope. Holter completed, does not show any significant arrhythmia, occasional APCs, lowest heart rate was 43. Preliminary scan reviewed from Holter. The patient had echocardiography done yesterday that shows ejection fraction of 55%. No segmental wall motion, trace aortic regurgitation, [id number] mitral regurgitation, mild tricuspid regurgitation, systolic pressure 33. Most likely the syncopal episode is secondary to orthostatic hypotension and vasovagal. We will continue IV fluid, leave on telemetry for 24 hours, and if the patient remains orthostatic tomorrow, negative possible discharge or discharge to [facility]. We will follow with you. We will increase fluid until tomorrow and we will check orthostatic blood pressure q. shift as before. Hemoglobin A1c comes out at 6.2, total cholesterol 198, triglyceride 50, LDL 97, HDL 67, TSH 0.26. Repeat the CBC *------* in the morning. Thank you Dr. Junior for providing the opportunity in taking care of this patient. Alba Gonzalez MD
--- NOTE | 2016-11-11 00:05 | CP.PCM.PN ---
Subjective - Date & Time of Evaluation Date of Evaluation: 11/10/16 Time of Evaluation: 11:00 - Subjective Subjective: patient complains of feeling slightly dizzy with return of migraines. Also complains of the right sided facial numbness . Denies changes in vision, weakness.as per vallecillo is slightly better , not much improved . Objective - Vital Signs/Intake and Output Vital Signs (last 24 hours): Temp Pulse Resp BP Pulse Ox 98.3 F 60 19 145/75 95 11/10/16 23:46 11/10/16 23:46 11/10/16 23:46 11/10/16 23:46 11/10/16 23:46 - Medications Medications: Current Medications Acetaminophen/Butalbital/Caffeine (Fioricet) 1 tab PO Q4H PRN PRN Reason: migraine Last Admin: 11/10/16 18:48 Dose: 1 tab Famotidine (Pepcid) 40 mg PO HS [facility] Last Admin: 11/10/16 21:24 Dose: 40 mg Gabapentin (Neurontin) 600 mg PO TID [facility] PRN Reason: Protocol Last Admin: 11/10/16 17:44 Dose: 600 mg Sodium Chloride (Sodium Chloride 0.9%) 1,000 mls @ 100 mls/hr IV .Q10H [facility] Stop: 11/11/16 23:59 Last Admin: 11/10/16 15:55 Dose: 100 mls/hr Metoclopramide HCl (Reglan) 10 mg IVP ACHS [facility] Last Admin: 11/10/16 21:25 Dose: 10 mg Zonisamide (Zonegran) 100 mg PO HS [facility] Last Admin: 11/10/16 21:25 Dose: 100 mg - Labs Labs: 11/10/16 06:38 11/10/16 06:38 PT 10.5 Seconds (9.9-11.8) 11/07/16 18:50 INR 0.97 (0.93-1.08) 11/07/16 18:50 APTT 25.1 Seconds (23.7-30.8) 11/07/16 18:50 - Constitutional Appears: Well - Head Exam Head Exam: ATRAUMATIC, NORMAL INSPECTION, NORMOCEPHALIC - Eye Exam Eye Exam: EOMI, Normal appearance, PERRL Pupil Exam: NORMAL ACCOMODATION, PERRL - ENT Exam ENT Exam: Mucous Membranes Moist, Normal Exam - Neck Exam Neck Exam: Full ROM, Normal Inspection. absent: Lymphadenopathy - Respiratory Exam Respiratory Exam: Clear to Ausculation Bilateral, NORMAL BREATHING PATTERN - Cardiovascular Exam Cardiovascular Exam: REGULAR RHYTHM, +S1, +S2. absent: Murmur - GI/Abdominal Exam GI & Abdominal Exam: Soft, Normal Bowel Sounds. absent: Tenderness - Rectal Exam Rectal Exam: NORMAL INSPECTION - Exam Exam: Circumcision, NORMAL INSPECTION External exam: NORMAL EXTERNAL EXAM Speculum exam: NORMAL SPECULUM EXAM Bimanual exam: NORMAL BIMANUAL EXAM - Extremities Exam Extremities Exam: Full ROM, Normal Capillary Refill, Normal Inspection. absent : Joint Swelling, Pedal Edema - Back Exam Back Exam: NORMAL INSPECTION - Neurological Exam Neurological Exam: Alert, Awake, CN II-XII Intact, Normal Gait, Oriented x3 - Psychiatric Exam Psychiatric exam: Normal Affect, Normal Mood - Skin Skin Exam: Dry, Intact, Normal Color, Warm Assessment and Plan (1) Migraine Status: Acute (2) Anemia Status: Acute (3) Lymph node cancer Status: Acute (4) H/O: HTN (hypertension) Status: Acute (5) Orthostatic hypertension Status: Acute (6) Bradycardia Status: Acute - Assessment and Plan (Free Text) Assessment: This is a 51 year old female with PMHx migraines (since age 6), HTN, unspecified lymph node malignancy who presented for evaluation of syncope. Syncopal episode likely due to episode of poor cerebral hypoperfusion secondary to episode of transient hypotension as well as ongoing episodes of bradycardia. CT head unremarkable for acute ischemic or hemorrhagic pathologies. Patient is chronically anemic. Patient's recent workup as noted below. Evidence of orthostatic hypotension. Echocardiogram showed EF 54%. MRA Head and MRI brain done in [facility] [place] on 11/08/16 were unremarkable. MRA Neck-Carotid done 10/20/16 at [facility] 1) Kinking and coiling of the right cervical internal carotid artery. 2) Left carotid and both vertebral arteries in the neck show no evidence of stenosis or occlusive disease. MRA Head done 10/20/16 at [facility] 1) No significant intracranial arterial abnormalities seen. 2) No aneurysms are identified on present exam. Images are of limited resolution done on the open low field imaging system. Small aneurysms may not be demonstrated on present examination. 3) Recommend MR angiogram on a high-field high-resolution imaging system if there is high index of clinical suspicion of aneurysm. 4) Recommend MRI examination of brain for further evaluation. Plan: 1) Maintain adequate hydration. 2) Keep SBP between 120-130 mmHg. 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 6) Neurontin 600 mg TID 7) Continue Zonisamide 8) Fioricet 1 tab Q4H prn migraine
[2016-11-11] MEDS: Sodium Chloride 0.9% 1,000 ML IV SCH ×3 (03:14→23:53)
[2016-11-11 06:52] LABS: BASO # 0.01 K/mm3 (0.0-2.0); BASO % 0.1 % (0.0-3.0); GRAN % 60.1 % (50.0-68.0); HEMOGLOBIN 10.8 gm/dL (12.0-16.0); LYMPH # 2.9 (1.2-3.4); LYMPH % 30.3 % (22.0-35.0); MEAN CELL VOLUME 92.3 fL (80.0-105.0); MEAN CORPUSCULAR HEMOGLOBIN 29.6 pg (25.0-35.0); MEAN PLATELET VOLUME 10.7 fl (7.0-11.0); MONO # 0.9 (0.1-0.6); MONO % 9.5 % (1.0-6.0); PLATELET COUNT 260 10^3/uL (120.0-450.0); RBC 3.65 10^6/uL (3.5-6.1); RED CELL DISTRIBUTION WIDTH 14.6 % (11.5-14.5); WHITE BLOOD COUNT 9.7 10^3/ul (4.5-11.0)
[2016-11-11 07:00] LABS: ALB/GLOB RATIO 1.2 (1.1-1.8); ALBUMIN 3.8 g/dL (3.0-4.8); ALT/SGPT 28 U/L (7-56); AST/SGOT 31 U/L (15-39); BLOOD UREA NITROGEN 9 mg/dL (7-21); CALCIUM 8.9 mg/dL (8.4-10.5); GFR AFRICAN-AMERICAN > 60; GFR NON-AFRICAN AMERICAN > 60
[2016-11-11] MEDS: Apap-Butalbital-Caffeine 325-50-40mg Tab PO PRN ×2 (07:42→16:38)
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
--- NOTE | 2016-11-11 14:31 | CP.PCM.PN ---
<Shamir Tysona Susy - Last Filed: 11/11/16 14:27> Subjective - Date & Time of Evaluation Date of Evaluation: 11/11/16 Time of Evaluation: 13:00 - Subjective Subjective: PGY-1 Neurology Progress Note for Dr. Echeverria Patient seen and examined at bedside. Patient reports improving headaches. Denies dizziness and paresthesias. Patient feels intermittently light headed. Objective - Vital Signs/Intake and Output Vital Signs (last 24 hours): Temp Pulse Resp BP Pulse Ox 98.4 F 60 16 112/74 98 11/11/16 11:46 11/11/16 11:46 11/11/16 11:46 11/11/16 11:46 11/11/16 05:53 Intake and Output: 11/11/16 11/11/16 06:59 18:59 Intake Total 1900 Balance 1900 - Medications Medications: Current Medications Acetaminophen/Butalbital/Caffeine (Fioricet) 1 tab PO Q4H PRN PRN Reason: migraine Last Admin: 11/11/16 07:42 Dose: 1 tab Famotidine (Pepcid) 40 mg PO HS [facility] Last Admin: 11/10/16 21:24 Dose: 40 mg Fludrocortisone Acetate (Florinef) 0.1 mg PO 0800,1600 [facility] Last Admin: 11/11/16 07:55 Dose: 0.1 mg Gabapentin (Neurontin) 600 mg PO TID [facility] PRN Reason: Protocol Last Admin: 11/11/16 14:18 Dose: 600 mg Sodium Chloride (Sodium Chloride 0.9%) 1,000 mls @ 100 mls/hr IV .Q10H [facility] Stop: 11/11/16 23:59 Last Admin: 11/11/16 03:14 Dose: Not Given Metoclopramide HCl (Reglan) 10 mg IVP ACHS [facility] Last Admin: 11/11/16 11:42 Dose: 10 mg Zonisamide (Zonegran) 100 mg PO HS [facility] Last Admin: 11/10/16 21:25 Dose: 100 mg - Labs Labs: 11/11/16 06:00 11/11/16 06:00 PT 10.5 Seconds (9.9-11.8) 11/07/16 18:50 INR 0.97 (0.93-1.08) 11/07/16 18:50 APTT 25.1 Seconds (23.7-30.8) 11/07/16 18:50 - Constitutional Appears: Non-toxic, No Acute Distress - Head Exam Head Exam: ATRAUMATIC, NORMAL INSPECTION, NORMOCEPHALIC - Eye Exam Eye Exam: EOMI, PERRL - ENT Exam ENT Exam: Mucous Membranes Moist - Respiratory Exam Respiratory Exam: Clear to Ausculation Bilateral - Cardiovascular Exam Cardiovascular Exam: REGULAR RHYTHM - GI/Abdominal Exam GI & Abdominal Exam: Normal Bowel Sounds - Neurological Exam Neurological Exam: Alert, Awake, CN II-XII Intact (decreased sensation on right side of face compared to the left), Oriented x3 Additional comments: Manual muscle testing 5/5 bilateral upper and lower extremities. Reflexes 2/4 in right upper extremity. Reflexes 1/4 left upper extremity and bilateral lower extremities. No pronator drift. Normal finger-nose test. Down-going plantar responses. Sensations intact x 4 extremities. Assessment and Plan - Assessment and Plan (Free Text) Assessment: This is a 51 year old female with PMHx migraines (since age 6), HTN, unspecified lymph node malignancy who presented for evaluation of syncope. Syncopal episode likely due to episode of poor cerebral hypoperfusion secondary to episode of transient hypotension as well as ongoing episodes of bradycardia. CT head unremarkable for acute ischemic or hemorrhagic pathologies. Patient is chronically anemic. Patient's recent workup as noted below. Evidence of orthostatic hypotension. Echocardiogram showed EF 54%. Headaches and associated symptoms improved. MRA Head and MRI brain done in [facility] [place] on 11/08/16 were unremarkable. MRA Neck-Carotid done 10/20/16 at [facility] 1) Kinking and coiling of the right cervical internal carotid artery. 2) Left carotid and both vertebral arteries in the neck show no evidence of stenosis or occlusive disease. MRA Head done 10/20/16 at [facility] 1) No significant intracranial arterial abnormalities seen. 2) No aneurysms are identified on present exam. Images are of limited resolution done on the open low field imaging system. Small aneurysms may not be demonstrated on present examination. 3) Recommend MR angiogram on a high-field high-resolution imaging system if there is high index of clinical suspicion of aneurysm. 4) Recommend MRI examination of brain for further evaluation. Plan: 1) Maintain adequate hydration. Encouraged to drink pedialyte at home. 2) Keep SBP between 120-130 mmHg. 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 *We will follow up in the outpatient clinic for management of migraine headaches. Case Discussed with Dr. Juwan Tyson PGY-1 <Romario Echeverria - Last Filed: 11/11/16 14:37> Objective - Vital Signs/Intake and Output Vital Signs (last 24 hours): Temp Pulse Resp BP Pulse Ox 98.4 F 60 16 112/74 98 11/11/16 11:46 11/11/16 11:46 11/11/16 11:46 11/11/16 11:46 11/11/16 05:53 Intake and Output: 11/11/16 11/11/16 06:59 18:59 Intake Total 1900 Balance 1900 - Medications Medications: Current Medications Acetaminophen/Butalbital/Caffeine (Fioricet) 1 tab PO Q4H PRN PRN Reason: migraine Last Admin: 11/11/16 07:42 Dose: 1 tab Famotidine (Pepcid) 40 mg PO HS [facility] Last Admin: 11/10/16 21:24 Dose: 40 mg Fludrocortisone Acetate (Florinef) 0.1 mg PO 0800,1600 [facility] Last Admin: 11/11/16 07:55 Dose: 0.1 mg Gabapentin (Neurontin) 600 mg PO TID [facility] PRN Reason: Protocol Last Admin: 11/11/16 14:18 Dose: 600 mg Sodium Chloride (Sodium Chloride 0.9%) 1,000 mls @ 100 mls/hr IV .Q10H [facility] Stop: 11/11/16 23:59 Last Admin: 11/11/16 03:14 Dose: Not Given Metoclopramide HCl (Reglan) 10 mg IVP ACHS [facility] Last Admin: 11/11/16 11:42 Dose: 10 mg Zonisamide (Zonegran) 100 mg PO HS [facility] Last Admin: 11/10/16 21:25 Dose: 100 mg - Labs Labs: 11/11/16 06:00 11/11/16 06:00 PT 10.5 Seconds (9.9-11.8) 07/17/17 18:50 INR 0.97 (0.93-1.08) 11/07/16 18:50 APTT 25.1 Seconds (23.7-30.8) 11/07/16 18:50 Attending/Attestation - Attestation I have personally seen and examined this patient.: Yes I have fully participated in the care of the patient.: Yes I have reviewed all pertinent clinical information, including history, physical exam and plan: Yes
--- NOTE | 2016-11-11 15:42 | PN ---
DATE: 11/11/2016 REASON FOR CONSULTATION: Followup syncope and orthostatic hypotension, rule out erythema. The patient denies any chest pain, shortness of breath, or any palpitation, but still severe orthostatic hypotensive. PHYSICAL EXAMINATION: VITAL SIGNS: Temperature afebrile, heart rate 67, blood pressure 132/77. HEENT: PERRLA, EOM intact. NECK: Supple. No carotid bruit. No thyromegaly. CHEST: Clear to auscultation. HEART: S1 and S2, regular. ABDOMEN: Soft. Extremities: Clubbing and cyanosis negative. Orthostatic blood pressure as follows: Lying blood pressure 132/77, sitting 92/54, standing 76/46. IMPRESSION: A 51-year-old female with past medical history significant, admitted with a syncopal episode, having a prior syncope as well. Most likely, the syncopal episode is secondary to severe orthostatic hypotension. The patient had a Holter monitor done that was completed and did not show any significant arrhythmia. Lowest heart rate was 50. The patient had echocardiography done that did not show any significant structural heart disease. Ejection fraction 55%. Trace aortic regurgitation. Trace to mild mitral regurgitation. *------*. Most likely these symptoms are secondary to orthostatic hypotension. PLAN: Continue IV fluid. Started Florinef 0.1 mg at 8 o'clock and 4-5 p.m. We will monitor orthostatic. After starting of the Florinef 2-3 doses, if the patient remains normotensive, possible discharge from [facility]. If she still remains orthostatic, then we will keep till orthostatic is resolved. We will follow with you. Thank you Dr. Nuno for providing opportunity taking care of the patient. Also, discussed with the correctional casework specialist *------* to appeal the stay in hospital if the patient has a significant orthostatic hypotension, dropping the blood pressure of 50 mmHg standing. The patient is not in a position to be discharged now, till becomes normotensive and orthostatic is completely resolved. Alba Gonzalez MD
--- NOTE | 2016-11-11 22:32 | CP.PCM.PN ---
Subjective - Date & Time of Evaluation Date of Evaluation: 11/11/16 Time of Evaluation: 09:00 - Subjective Subjective: Patient seen and examined at bedside. Patient reports improving headaches. Denies dizziness and paresthesias. Patient feels intermittently light headed.but improved a lot Objective - Vital Signs/Intake and Output Vital Signs (last 24 hours): Temp Pulse Resp BP Pulse Ox 98 F 60 21 160/95 H 98 11/11/16 17:34 11/11/16 18:00 11/11/16 17:34 11/11/16 17:34 11/11/16 17:34 - Medications Medications: Current Medications Acetaminophen/Butalbital/Caffeine (Fioricet) 1 tab PO Q4H PRN PRN Reason: migraine Last Admin: 11/11/16 16:38 Dose: 1 tab Famotidine (Pepcid) 40 mg PO HS [facility] Last Admin: 11/10/16 21:24 Dose: 40 mg Fludrocortisone Acetate (Florinef) 0.1 mg PO 0800,1600 [facility] Last Admin: 11/11/16 16:38 Dose: 0.1 mg Gabapentin (Neurontin) 600 mg PO TID [facility] PRN Reason: Protocol Last Admin: 11/11/16 18:02 Dose: 600 mg Sodium Chloride (Sodium Chloride 0.9%) 1,000 mls @ 100 mls/hr IV .Q10H [facility] Stop: 11/11/16 23:59 Last Admin: 11/11/16 16:23 Dose: 100 mls/hr Metoclopramide HCl (Reglan) 10 mg IVP ACHS [facility] Last Admin: 11/11/16 16:38 Dose: 10 mg Zonisamide (Zonegran) 100 mg PO HS [facility] Last Admin: 11/10/16 21:25 Dose: 100 mg - Labs Labs: 11/11/16 06:00 11/11/16 06:00 PT 10.5 Seconds (9.9-11.8) 11/07/16 18:50 INR 0.97 (0.93-1.08) 11/07/16 18:50 APTT 25.1 Seconds (23.7-30.8) 11/07/16 18:50 - Constitutional Appears: Well - Head Exam Head Exam: ATRAUMATIC, NORMAL INSPECTION, NORMOCEPHALIC - Eye Exam Eye Exam: EOMI, Normal appearance, PERRL Pupil Exam: NORMAL ACCOMODATION, PERRL - ENT Exam ENT Exam: Mucous Membranes Moist, Normal Exam - Neck Exam Neck Exam: Full ROM, Normal Inspection. absent: Lymphadenopathy - Respiratory Exam Respiratory Exam: Clear to Ausculation Bilateral, NORMAL BREATHING PATTERN - Cardiovascular Exam Cardiovascular Exam: REGULAR RHYTHM, +S1, +S2. absent: Murmur - GI/Abdominal Exam GI & Abdominal Exam: Soft, Normal Bowel Sounds. absent: Tenderness - Back Exam Back Exam: NORMAL INSPECTION - Neurological Exam Neurological Exam: Alert, Awake, CN II-XII Intact, Normal Gait, Oriented x3 - Psychiatric Exam Psychiatric exam: Normal Affect, Normal Mood - Skin Skin Exam: Dry, Intact, Normal Color, Warm Assessment and Plan (1) Migraine Status: Acute (2) Anemia Status: Acute (3) Lymph node cancer Status: Acute (4) H/O: HTN (hypertension) Status: Acute (5) Orthostatic hypertension Status: Acute (6) Bradycardia Status: Acute - Assessment and Plan (Free Text) Assessment: This is a 51 year old female with PMHx migraines (since age 6), HTN, unspecified lymph node malignancy who presented for evaluation of syncope. Syncopal episode likely due to episode of poor cerebral hypoperfusion secondary to episode of transient hypotension as well as ongoing episodes of bradycardia. CT head unremarkable for acute ischemic or hemorrhagic pathologies. Patient is chronically anemic. Patient's recent workup as noted below. Evidence of orthostatic hypotension. Echocardiogram showed EF 54%. Headaches and associated symptoms improved. Plan: Plan: 1) Maintain adequate hydration. Encouraged to drink pedialyte at home. 2) Keep SBP between 120-130 mmHg. 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
[2016-11-12] MEDS: Apap-Butalbital-Caffeine 325-50-40mg Tab PO PRN ×4 (03:56→20:51)
[2016-11-12 07:23] LABS: HEMOGLOBIN 11.1 gm/dL (12.0-16.0); MEAN CELL VOLUME 92.8 fL (80.0-105.0); MEAN CORPUSCULAR HEMOGLOBIN 29.5 pg (25.0-35.0); MEAN CORPUSCULAR HGB CONC 31.8 g/dl (31.0-37.0); MEAN PLATELET VOLUME 10.4 fl (7.0-11.0); PLATELET COUNT 269 10^3/uL (120.0-450.0); RBC 3.76 10^6/uL (3.5-6.1); RED CELL DISTRIBUTION WIDTH 14.6 % (11.5-14.5); WHITE BLOOD COUNT 8.6 10^3/ul (4.5-11.0)
[2016-11-12 08:09] LABS: BLOOD UREA NITROGEN 5 mg/dL (7-21); CALCIUM 8.7 mg/dL (8.4-10.5); GFR AFRICAN-AMERICAN > 60; GFR NON-AFRICAN AMERICAN > 60
[2016-11-12 10:15] LABS: ATYPICAL LYMPHOCYTE 1 % (0.0-0.0); LYMPHOCYTE 61 % (22.0-35.0); MONOCYTE 5 % (1.0-6.0); NEUTROPHIL 31 % (50.0-70.0)
[2016-11-12] MEDS: Sodium Chloride 0.9% 1,000 ML IV SCH (10:15)
[2016-11-12 10:16] LABS: ANISOCYTOSIS SLIGHT; HYPOCHROMIA SLIGHT; PLATELET ESTIMATE NORMAL (NORMAL); POIKILOCYTOSIS SLIGHT
--- NOTE | 2016-11-12 13:49 | PN ---
DATE: 11/12/2016 REASON FOR CONSULTATION: Syncope and orthostatic hypotension. SUBJECTIVE: Patient says she feels dizzy on sitting for a while. PHYSICAL EXAMINATION: As follows: VITAL SIGNS: Temperature afebrile, heart rate 80, and blood pressure 157/90. Orthostatics were done at the bedside with the nurse found to be 160/90 on lying, on sitting blood pressure dropped to 112 with leg hanging down under 80 and standing blood pressure drops to 99, and significant orthostatic hypotension drop in blood pressure to 70 mmHg. HEENT: PERRLA. EOM intact. NECK: Supple. No carotid bruit. No thyromegaly. CHEST: Clear to auscultation. HEART: S1 and S2 regular. ABDOMEN: Soft. EXTREMITIES: Clubbing and cyanosis negative. LABORATORY DATA: Blood workup as follows: WBC 8.6, hemoglobin 11.8, hematocrit 34.9, and platelet count 269. Chemistry shows sodium 144, potassium , chloride 109, carbon dioxide 28, anion gap of 11, BUN 5, and creatinine 0.6. IMPRESSION: This is a 51-year-old female with past medical history significant for migraine, admitted with syncope. Holter monitor shows no significant arrhythmia. Echo shows no significant structural heart disease with function, ejection fraction 55%, trace aortic regurgitation, [id number] mitral regurgitation, [id number] tricuspid regurgitation, and right ventricular systolic pressure 33. Patient with orthostatic hypotension, this morning again patient had 70 mmHg drop in blood pressure. On lying, patient has a blood pressure of 166/90, on sitting 112, and again standing blood pressure dropped to 99, probably these symptoms secondary to orthostatic hypotension. RECOMMENDATIONS: Continue Florinef 0.1 mg b.i.d., start IV fluids 50 mL an hour, and we will put p.r.n. hydralazine for blood pressure more than 170 systolic and more than 100. We will discuss with neurologist workup for autonomic instability. Thank you Dr. Junior for providing me the opportunity in taking care of the patient Ann Magaña. We will follow with you. Patient is not stable to be discharged patient if dropping 70 mmHg. Alba Gonzalez MD
--- NOTE | 2016-11-13 00:23 | PN ---
SUBJECTIVE: Patient was seen and examined on the bedside, lying down. and son are sitting on the bedside also. Still feeling dizzy when she is sitting, having a headache, and an episode happened in morning, has noted orthostatic blood pressure done by Dr. Gonzalez. No hematuria or hematochezia, no swelling of the legs, no chest pain, no palpitation. PHYSICAL EXAMINATION VITAL SIGNS: Temperature is 98.6. Heart rate is 80. Blood pressure is 155/90. Respiratory rate is 18. HEENT: Head is normocephalic and atraumatic. Eyes; PERRLA, extraocular muscles intact, conjunctivae clear. Nose patent. Mucous membranes moist. NECK: Supple. No carotid bruit. No thyromegaly. CHEST: Bilaterally symmetrical. HEART: S1, S2 positive. LUNGS: Clear to auscultation. ABDOMEN: Soft. Bowel sounds present. No organomegaly. EXTREMITIES: No edema, no cyanosis. NEUROLOGIC: The patient is awake and alert. Moving all four extremities. No focal deficit LABORATORY DATA: White blood cell is 8.6, hemoglobin is 11.8, hematocrit is 34.9, platelets 259. Sodium 144, chloride 109, BUN 5, creatinine 0.6. MEDICATIONS: Reviewed by me. ASSESSMENT AND PLAN: Ms. Gómez Juarez is a 51-year-old female who came with headache and dizziness, migraine, and syncopal attack. Holter monitor shows no significant arrhythmias. Echo shows no significant structural heart disease, ejection fraction is 55%, [id number] aortic regurgitation, ykpld-[id number] mitral regurgitation, [id number] tricuspid regurgitation, systolic pressure 33. The patient has orthostatic hypotension, there is a difference of 70 mmHg of systolic blood pressure, drop of 70 mmHg. Lying blood pressure is 166/90, sitting is 112 systolic and the standing systolic is 99. Dr. Gonzalez started Florinef 0.1 mg p.o. b.i.d., and we will put p.r.n. hydralazine if blood pressure will go above 170 systolic and diastolic above 100. Length of time discussion with patient's nurse. Appreciating Dr. Gonzalez's input, appreciating neurologist's input also. Gastrointestinal and deep venous thrombosis prophylaxis, repeat labs, and follow up. Alana Junior MD [facility] # [id number] ALFREDO
[2016-11-13] MEDS: Sodium Chloride 0.9% 1,000 ML IV SCH ×3 (04:28→21:31)
[2016-11-13] MEDS: Apap-Butalbital-Caffeine 325-50-40mg Tab PO PRN ×4 (07:24→21:31)
--- NOTE | 2016-11-13 13:55 | PN ---
DATE: 11/13/2016 REASON FOR FOLLOWUP: Syncope, orthostatic hypotension. SUBJECTIVE: The patient lying on the bed. Denies any dizziness today. PHYSICAL EXAMINATION: VITAL SIGNS: Temperature afebrile, heart rate 60, blood pressure 153/89. The patient still has orthostatic hypotension. Orthostatic blood pressure as follows at 6 a.m., lying 153/87, sitting 140/104, standing 113/75. Repeat orthostatic done 10 o'clock, lying 115/72, sitting 88/59, standing was not done because already the patient orthostatic hypotension. HEENT: PERRLA, EOM intact. NECK: Supple. No carotid bruit. No thyromegaly. CHEST: Clear to auscultation. HEART: S1 and S2, regular. ABDOMEN: Soft. EXTREMITIES: Clubbing and cyanosis negative. LABORATORY DATA: Blood workup as follows: WBC 8.6, hemoglobin 11, hematocrit 34.9, platelet count 269. Chemistry shows sodium of 144, potassium 4, chloride 109, carbon dioxide 28, anion gap of 11, BUN , and creatinine 0.6. Workup as follows: Holter did not show any significant arrhythmia. Echo showed no significant structural heart disease, ejection infraction 55%, trace aortic regurgitation, mild mitral regurgitation, mild tricuspid regurgitation . IMPRESSION: A 51-year-old female with past medical history significant for admitted with syncopal episode twice, found to have significant orthostatic hypotension, on Florinef and still orthostatic hypotension. RECOMMENDATION: Continue IV fluid. Continue Florinef. We will discuss with neurologist to workup for autonomic instability and we will put stockings and for now continue Florinef. We will check orthostatic tomorrow. Also started hydralazine p.r.n. for systolic more than 170 and diastolic more than 100. We will follow with you. We will check with the neurologist regarding medication is not causing any orthostatic hypotension. Discussed with nursing taking care of Ann Magaña. Thank you for opportunity in taking care of the patient, Ann Bellaoyo. Alba Gonzalez MD
[2016-11-14] MEDS ORDERED: Nitroglycerin 2% Ointment Foilpak UD TOP ONE
[2016-11-14] MEDS ORDERED: Sodium Chloride 0.9% 250 ML IV STA (00:05)
[2016-11-14 00:21] LABS: HEMOGLOBIN 11.2 gm/dL (12.0-16.0); MEAN CELL VOLUME 91.9 fL (80.0-105.0); MEAN CORPUSCULAR HEMOGLOBIN 30.4 pg (25.0-35.0); MEAN PLATELET VOLUME 10.4 fl (7.0-11.0); RBC 3.69 10^6/uL (3.5-6.1); RED CELL DISTRIBUTION WIDTH 14.4 % (11.5-14.5); WHITE BLOOD COUNT 7.3 10^3/ul (4.5-11.0)
--- NOTE | 2016-11-14 00:26 | CP.PCM.PN ---
Subjective - Date & Time of Evaluation Date of Evaluation: 11/14/16 Time of Evaluation: 00:26 - Subjective Subjective: draft Objective - Vital Signs/Intake and Output Vital Signs (last 24 hours): Temp Pulse Resp BP Pulse Ox 97.9 F 67 18 101/59 L 97 11/13/16 17:07 11/13/16 22:00 11/13/16 17:07 11/13/16 17:07 11/13/16 06:00 Intake and Output: 11/13/16 11/14/16 18:59 06:59 Intake Total 960 Balance 960 - Medications Medications: Current Medications Acetaminophen/Butalbital/Caffeine (Fioricet) 1 tab PO Q4H PRN PRN Reason: migraine Last Admin: 11/13/16 21:31 Dose: 1 tab Famotidine (Pepcid) 40 mg PO HS [facility] Last Admin: 11/13/16 21:31 Dose: 40 mg Fludrocortisone Acetate (Florinef) 0.1 mg PO 0800,1600 [facility] Last Admin: 11/13/16 17:19 Dose: 0.1 mg Gabapentin (Neurontin) 600 mg PO TID IAN PRN Reason: Protocol Last Admin: 11/13/16 17:19 Dose: 600 mg Hydralazine HCl (Apresoline) 10 mg PO QID PRN PRN Reason: for SBP>170 and diastolic>100 Sodium Chloride (Sodium Chloride 0.9%) 1,000 mls @ 50 mls/hr IV .Q20H IAN Last Admin: 11/13/16 21:31 Dose: 50 mls/hr Metoclopramide HCl (Reglan) 10 mg IVP ACHS [facility] Last Admin: 11/13/16 21:31 Dose: 10 mg Zonisamide (Zonegran) 100 mg PO HS [facility] Last Admin: 11/13/16 21:30 Dose: 100 mg - Labs Labs: 11/14/16 00:07 11/12/16 07:12 PT 10.5 Seconds (9.9-11.8) 11/07/16 18:50 INR 0.97 (0.93-1.08) 11/07/16 18:50 APTT 25.1 Seconds (23.7-30.8) 11/07/16 18:50
--- NOTE | 2016-11-14 00:34 | CP.PCM.PCO ---
Physician Communication Note - Physician Communication Note Physician Communication Note: See Summary for PHOTOGRAPHER HELPER details
[2016-11-14 00:40] LABS: ALB/GLOB RATIO 1.1 (1.1-1.8); ALBUMIN 3.5 g/dL (3.0-4.8); ALT/SGPT 54 U/L (7-56); AST/SGOT 66 U/L (15-39); BLOOD UREA NITROGEN 7 mg/dL (7-21); CALCIUM 8.4 mg/dL (8.4-10.5); GFR AFRICAN-AMERICAN > 60; GFR NON-AFRICAN AMERICAN > 60
--- NOTE | 2016-11-14 00:40 | CP.PCM.PN ---
<VALDEZ SAINI - Last Filed: 11/14/16 00:41> Subjective - Date & Time of Evaluation Date of Evaluation: 11/14/16 Time of Evaluation: 00:30 - Subjective Subjective: Rapid Response Note: GRINDER HAND was called at 23:53. Per nurse, pt had syncopal episode while in restroom having bowel movement. Nurse reports pt had LOC, but did not fall and did not hit her head. Pt awake and responds to questioning. Pt denied CP, SOB, chills, fevers, n/v/f, abdominal pain, BRBPR, or melena. Objective - Vital Signs/Intake and Output Vital Signs (last 24 hours): Temp Pulse Resp BP Pulse Ox 97.9 F 67 18 101/59 L 97 11/13/16 17:07 11/13/16 22:00 11/13/16 17:07 11/13/16 17:07 11/13/16 06:00 Intake and Output: 11/13/16 11/14/16 18:59 06:59 Intake Total 960 Balance 960 - Medications Medications: Current Medications Acetaminophen/Butalbital/Caffeine (Fioricet) 1 tab PO Q4H PRN PRN Reason: migraine Last Admin: 11/13/16 21:31 Dose: 1 tab Famotidine (Pepcid) [address] [facility] Last Admin: 11/13/16 21:31 Dose: 40 mg Fludrocortisone Acetate (Florinef) 0.1 mg PO 0800,1600 [facility] Last Admin: 11/13/16 17:19 Dose: 0.1 mg Gabapentin (Neurontin) 600 mg PO TID [facility] PRN Reason: Protocol Last Admin: 11/13/16 17:19 Dose: 600 mg Hydralazine HCl (Apresoline) 10 mg PO QID PRN PRN Reason: for SBP>170 and diastolic>100 Sodium Chloride (Sodium Chloride 0.9%) 1,000 mls @ 50 mls/hr IV .Q20H [facility] Last Admin: 11/13/16 21:31 Dose: 50 mls/hr Metoclopramide HCl (Reglan) 10 mg IVP ACHS [facility] Last Admin: 11/13/16 21:31 Dose: 10 mg Zonisamide (Zonegran) 100 mg PO HS [facility] Last Admin: 11/13/16 21:30 Dose: 100 mg - Labs Labs: 11/14/16 00:07 11/12/16 07:12 PT 10.5 Seconds (9.9-11.8) 11/07/16 18:50 INR 0.97 (0.93-1.08) 11/07/16 18:50 APTT 25.1 Seconds (23.7-30.8) 11/07/16 18:50 - Constitutional Appears: Confused - Head Exam Head Exam: ATRAUMATIC, NORMOCEPHALIC - Eye Exam Eye Exam: EOMI, Normal appearance, PERRL - ENT Exam ENT Exam: Mucous Membranes Moist - Neck Exam Neck Exam: Full ROM. absent: Lymphadenopathy, Tenderness, Thyromegaly - Respiratory Exam Respiratory Exam: Clear to Ausculation Bilateral. absent: Rales, Rhonchi, Wheezes - Cardiovascular Exam Cardiovascular Exam: RRR, +S1, +S2. absent: Gallop, Rubs, Murmur - GI/Abdominal Exam GI & Abdominal Exam: Soft. absent: Distended, Guarding, Tenderness, Rebound - Neurological Exam Neurological Exam: Alert, Awake, CN II-XII Intact, Reflexes Normal. absent: Oriented x3 - Skin Skin Exam: Dry, Intact, Normal Color, Warm Assessment and Plan - Assessment and Plan (Free Text) Assessment: 51 yo F GRINDER HAND for syncopal episode. 1. Syncopal Episode -Head CT -Trend EKG, Troponins, CMP, CBC -Cardiology and neurology already following pt Case reviewed with mateus Jones f/u with results. <Esther Gonzalez - Last Filed: 11/14/16 01:34> Objective - Vital Signs/Intake and Output Vital Signs (last 24 hours): Temp Pulse Resp BP Pulse Ox 98 F 49 L 18 137/76 100 11/14/16 00:01 11/14/16 01:29 11/14/16 01:29 11/14/16 01:29 11/14/16 01:29 Intake and Output: 11/13/16 11/14/16 18:59 06:59 Intake Total 960 Balance 960 - Medications Medications: Current Medications Acetaminophen/Butalbital/Caffeine (Fioricet) 1 tab PO Q4H PRN PRN Reason: migraine Last Admin: 11/13/16 21:31 Dose: 1 tab Famotidine (Pepcid) 40 mg PO HS [facility] Last Admin: 11/13/16 21:31 Dose: 40 mg Fludrocortisone Acetate (Florinef) 0.1 mg PO 0800,1600 [facility] Last Admin: 11/13/16 17:19 Dose: 0.1 mg Gabapentin (Neurontin) 600 mg PO TID [facility] PRN Reason: Protocol Last Admin: 11/13/16 17:19 Dose: 600 mg Hydralazine HCl (Apresoline) 10 mg PO QID PRN PRN Reason: for SBP>170 and diastolic>100 Sodium Chloride (Sodium Chloride 0.9%) 1,000 mls @ 50 mls/hr IV .Q20H [facility] Last Admin: 11/13/16 21:31 Dose: 50 mls/hr Metoclopramide HCl (Reglan) 10 mg IVP ACHS [facility] Last Admin: 11/13/16 21:31 Dose: 10 mg Zonisamide (Zonegran) 100 mg PO HS [facility] Last Admin: 11/13/16 21:30 Dose: 100 mg - Labs Labs: 11/14/16 00:07 11/14/16 00:07 PT 10.5 Seconds (9.9-11.8) 11/07/16 18:50 INR 0.97 (0.93-1.08) 11/07/16 18:50 APTT 25.1 Seconds (23.7-30.8) 11/07/16 18:50 Attending/Attestation - Attestation I have personally seen and examined this patient.: Yes I have fully participated in the care of the patient.: Yes I have reviewed all pertinent clinical information, including history, physical exam and plan: Yes Notes (Text): 11/14/16 01:[address] recruiter[address] head was negative. Discussed with . Will order consultation with Dr.Cam Sierra to rule out sympathetic- parasympathetic dysfunction.
[2016-11-14 00:53] LABS: TROPONIN I < 0.01 ng/mL
--- NOTE | 2016-11-14 01:04 | CT ---
EXAM: CT Head Without Intravenous Contrast CLINICAL HISTORY: The patient age is 51 years old and is female; Signs and symptoms; Syncope and collapse Facility exam id and description: Ct heads head w/o contrast TECHNIQUE: Axial computed tomography images of the head/brain without intravenous contrast. This CT exam was performed using one or more of the following dose reduction techniques: automated exposure control, adjustment of the mA and/or kV according to patient size, and/or use of iterative reconstruction technique. EXAM DATE/TIME: 11/14/2016 12:06 AM COMPARISON: CT - HEAD W/O CONTRAST 11/07/2016 8:58:14 PM FINDINGS: Brain: The white-weldon differentiation is preserved demonstrating no acute territorial type infarct. No acute intracranial hemorrhage is seen. No edema. Midline shift: There is no midline shift. Ventricles: No ventriculomegaly. Bones/joints: The calvarium demonstrates no evidence for a depressed fracture. Soft tissues: No acute abnormality. Sinuses: Unremarkable as visualized. No acute sinusitis. Mastoid air cells: No mastoid effusion. IMPRESSION: 1. No acute intracranial abnormality.
[2016-11-14] MEDS: Apap-Butalbital-Caffeine 325-50-40mg Tab PO PRN ×4 (01:33→21:50)
--- NOTE | 2016-11-14 02:24 | PN ---
DATE: 11/13/2016 SUBJECTIVE: The patient was seen and examined at the bedside on 11/13/2016. Daughter was sitting on the bedside also. According to the patient, couple of times in a day, she was having feelings of headache, dizziness, feelings of passing out. Now, this is on the case. No nausea, vomiting, diarrhea. No swelling of the leg. No hematuria or hematochezia. PHYSICAL EXAMINATION VITAL SIGNS: Temperature 97.9, pulse 67, blood pressure 101/59, respiratory rate 18. HEENT: Normocephalic, atraumatic. Eyes; PERRLA, extraocular muscles intact, conjunctivae clear. Nose patent. Mucous membranes moist. NECK: Supple. No carotid bruits. No JVD or thyromegaly. CHEST: Bilaterally symmetrical. HEART: S1 and S2 positive. LUNGS: Clear to auscultation. ABDOMEN: Soft. Bowel sounds present. No organomegaly. EXTREMITIES: No edema, no cyanosis. NEUROLOGIC: The patient is awake and alert. Moving all four extremities. No focal deficits. MEDICATIONS: Hydralazine, albuterol, Florinef, Neurontin, Pepcid, Reglan, and zonisamide. LABORATORY DATA: White blood cell is 7.3, hemoglobin 11.2, hematocrit 33.9, and platelets 255. Sodium 139, potassium 3.6, BUN 17, creatinine 0.5, glucose 127, AST 66. ASSESSMENT AND PLAN: Ms. Ann Magaña is a 51-year-old lady with a history of high blood pressure now was admitted with syncopal episodes twice, found to have significant orthostatic hypotension on Florinef, and still having orthostatic hypotension. According to our electronic equipment installer, continue IV fluid, continue Florinef. Maybe patient have autonomic instability, need more workup. The electronic equipment installer ordered the stockings. Started the patient on hydralazine for systolic blood pressure more than 170, diastolic more than 100. Today, I received call from Dr. Gonzalez that the patient has episode of passing out. Rapid response was called. It was a syncopal episode while in the restroom having bowel movement. Nurse reports patient had loss of consciousness, but did not fall and did not hit her head. The patient is awake and responds to questioning, but denied chest pain, shortness of breath, chill, fever, nausea, vomiting or melena. Discussion on with Dr. Gonzalez and ordered consult with email developer, Dr. Mariela Young. We will talk to electronic equipment installer and neurologist. Discussion has been to stop and make sure that the patient is not taking any type of medicines by herself especially blood pressure medication. We will keep an eye. The patient was seen by the psychiatrist also. We will follow up. Alana Junior MD
[2016-11-14] MEDS: Sodium Chloride 0.9% 1,000 ML IV SCH ×2 (03:03→06:24)
--- NOTE | 2016-11-14 04:37 | CP.PCM.PN ---
Subjective - Date & Time of Evaluation Date of Evaluation: 11/14/16 Time of Evaluation: 04:37 (Read earlier.) - Subjective Subjective: EKG:Sinus bradycardia. Objective - Vital Signs/Intake and Output Vital Signs (last 24 hours): Temp Pulse Resp BP Pulse Ox 98 F 49 L 18 137/76 100 11/14/16 00:01 11/14/16 01:29 11/14/16 01:29 11/14/16 01:29 11/14/16 01:29 Intake and Output: 11/13/16 11/14/16 18:59 06:59 Intake Total 960 Balance 960 - Medications Medications: Current Medications Acetaminophen/Butalbital/Caffeine (Fioricet) 1 tab PO Q4H PRN PRN Reason: migraine Last Admin: 11/14/16 01:33 Dose: 1 tab Famotidine (Pepcid) 40 mg PO HS [facility] Last Admin: 11/13/16 21:31 Dose: 40 mg Fludrocortisone Acetate (Florinef) 0.1 mg PO 0800,1600 [facility] Last Admin: 11/13/16 17:19 Dose: 0.1 mg Gabapentin (Neurontin) 600 mg PO TID [facility] PRN Reason: Protocol Last Admin: 11/13/16 17:19 Dose: 600 mg Hydralazine HCl (Apresoline) 10 mg PO QID PRN PRN Reason: for SBP>170 and diastolic>100 Sodium Chloride (Sodium Chloride 0.9%) 1,000 mls @ 50 mls/hr IV .Q20H [facility] Last Admin: 11/14/16 03:03 Dose: Not Given Metoclopramide HCl (Reglan) 10 mg IVP ACHS [facility] Last Admin: 11/13/16 21:31 Dose: 10 mg Zonisamide (Zonegran) 100 mg PO HS [facility] Last Admin: 11/13/16 21:30 Dose: 100 mg - Labs Labs: 11/14/16 00:07 11/14/16 00:07 PT 10.5 Seconds (9.9-11.8) 11/07/16 18:50 INR 0.97 (0.93-1.08) 11/07/16 18:50 APTT 25.1 Seconds (23.7-30.8) 11/07/16 18:50
--- NOTE | 2016-11-14 13:34 | PN ---
DATE: 11/14/2016 REASON FOR CONSULTATION: Followup syncope, orthostatic hypotension. SUBJECTIVE: The patient is lying flat. Denies any chest pain. Even noted last night, patient went to bathroom, had a rapid response because of drop of blood pressure with orthostatic hypotension, blood pressure in 60s. OBJECTIVE FINDINGS: Examination as follows: VITAL SIGNS: Temperature afebrile, heart rate 60, blood pressure 105/65. HEENT: PERRLA, intact. NECK: Supple. No carotid bruit. No thyromegaly. CHEST: Clear to auscultation. HEART: S1 and S2 regular. ABDOMEN: Soft. EXTREMITIES: Clubbing and cyanosis negative. Orthostatic blood pressure at 6 a.m. 133/80 when lying, sitting 109, standing 100/68. LABORATORY DATA: Blood workup has a WBC of 7.3, hemoglobin 11.8, hematocrit 33.9, platelet count 255. Chemistry shows sodium 139, potassium 3.6, chloride of 104, carbon dioxide 26, anion gap of 13, BUN 7, creatinine 0.5. Troponin 0.02. IMPRESSION: Syncope secondary to orthostatic hypotension this morning improving from 133 to 100, dropped to 130 mmHg on Florinef and IV fluids. RECOMMENDATIONS: Continue Florinef. Continue IV fluid. Endocrine evaluation to rule out hypoaldosteronism. We will follow with you. I will continue to follow up. We will put stockings in the leg as well as I will put her on hydralazine p.r.n. for high blood pressure. We will follow with you. Thank you Dr. Junior for providing me the opportunity in taking care of patient, Ann Magaña. Alba Gonzalez MD
--- NOTE | 2016-11-14 20:58 | CARD ---
APPROVED REPORT EKG Measurement Heart [id number] [place] [id number] <Conclusion> Sinus tachycardia with 2nd degree AV block with 2:1 AV conduction Moderate voltage criteria for LVH, may be normal variant Abnormal ECG
--- NOTE | 2016-11-14 21:12 | CARD ---
APPROVED REPORT EKG Measurement Heart [id number] <Conclusion> Sinus bradycardia Otherwise normal ECG
--- NOTE | 2016-11-14 21:13 | CARD ---
APPROVED REPORT EKG Measurement Heart [id number] [place] [id number] [id number] <Conclusion> Sinus bradycardia Otherwise normal ECG
[2016-11-15] MEDS: Sodium Chloride 0.9% 1,000 ML IV SCH (02:00)
--- NOTE | 2016-11-15 02:04 | PN ---
DATE: SUBJECTIVE: The patient is examined on the bedside. Still complaining about headache, dizziness. Has episode of orthostatic hypotension early in the morning. Reviewed Dr. Gonzalez's notes. No nausea, vomiting, diarrhea, hematemesis, or hematuria. No swelling of the leg. No chest pain, no palpitation. PHYSICAL EXAMINATION VITAL SIGNS: Temperature is 97.8, pulse 64, blood pressure 101/66, respiratory rate 18. HEENT: Head is normocephalic and atraumatic. Eyes PERRLA. Extraocular muscles are intact. Conjunctivae clear. Nose patent. Mucous membranes moist. NECK: Supple. No carotid bruits. No thyromegaly. CHEST: Bilaterally symmetrical. HEART: S1 and S2 positive. LUNGS: Clear to auscultation. ABDOMEN: Soft. Bowel sounds present. No organomegaly. EXTREMITIES: No edema, no cyanosis. NEUROLOGICAL: The patient is awake, alert. Moving all 4 extremities. No focal deficits. MEDICATIONS: Hydralazine, Fioricet, Florinef, Neurontin, Pepcid, Zonegran. LABORATORY DATA: White blood cells 7.3, hemoglobin 11.2, hematocrit 33.8, platelets 255. Sodium 130, potassium 3.6, BUN 7, creatinine 0.5, glucose 127. AST 66. ASSESSMENT AND PLAN: The patient is 61 years old female with hyperglycemia, abnormal liver function test, anemia. Got echocardiography today by Dr. Ayala. The patient has sinus tachycardia with second-degree AV block with 2:1 AV conduction, moderate voltage criteria for LVH, maybe normal variant. Abnormal ECG. Reviewed Dr. Gonzalez's notes. The patient had vallecillo , dizzyness secondary to orthostatic hypotension. Continue Florinef and IV fluid. Mortar Man recommending continue Florinef and continue IV fluid. Endocrine evaluation to rule out hypoaldosteronism. He put stockings to the legs as well as he put hydralazine p.r.n. for high blood pressure. Dr. Gonzalez's notes reviewed. CAT scan of the head reviewed, Dr. Echeverria saw this patient on 11/11/2016, waiting for endocrinology input. Meanwhile, physical therapy will follow up. Alana Junior MD MTDJose Juan
--- NOTE | 2016-11-15 04:21 | CON ---
ROOM: 272. SUBJECTIVE: This is a 51-year-old female with known history of hypertension, dyslipidemia, admitted with a syncopal episode and undergoing cardiac and neurologic workup at this time and has also been referred down for evaluation of abnormal thyroid function studies. PAST MEDICAL HISTORY: As mentioned above, history of hypertensive cardiovascular disease and dyslipidemia, history of generalized anxiety and depression, has been on various psychotropic medications. Also, recent history of migraine headaches, has been on certain analgesics for pain relief and control. Her list of medications have been reviewed in detail. No recent knowledge of any kind of thyroid disorder or intake of any medications for the same. FAMILY HISTORY: Positive for hypertension and heart disease. No known thyroid endocrinopathy. REVIEW OF SYSTEMS: As mentioned above, admits to generalized body weakness with easy fatigability and tiredness and suboptimal energy level. Also admits to episodic bouts of dizziness and lightheadedness with recent new syncopal and syncopal episodes noted. No recent chest pain, palpitations or PND. No alteration of bladder and urinary patterns. PHYSICAL EXAMINATION GENERAL: This is an average-built female, in no apparent distress. VITAL SIGNS: Blood pressure of 140/80, pulse of 70 beats per minute and regular, temperature of 98, respirations 20. Height is 5 feet 7 inches. Derick is 168 pounds. HEENT: Head is normocephalic. Eyes are anicteric with pink conjunctivae. Funduscopy not possible at this time. Ears, nose, and throat otherwise normal. NECK: Supple. Thyroid gland is normal in size. No carotid bruits or cervical adenopathy. CARDIOPULMONARY: Adynamic precordium. S1 and S2 is rapid and regular. LUNGS: Clear to auscultation. ABDOMEN: Flat, soft with positive bowel sounds. EXTREMITIES: No pedal edema. Pulses are +2 bilaterally. LABORATORY DATA: The chemistry showed a BUN of 7, sodium 139, potassium 3.6, chloride 104, CO2 of 26, glucose 127, and creatinine 0.5. Her TSH level is 0.26. ASSESSMENT: This is a 51-year-old female with known history of hypertension and dyslipidemia, admitted here with apparent syncopal episode with frequent bouts of near syncope and currently undergoing neurological and cardiac workup at this time. She is being referred for evaluation of abnormal thyroid function studies. She actually is clinically euthyroid and biochemically, the so called sick euthyroid syndrome, very common with recent acute physical stressors, adaptive coping mechanisms, otherwise. We have exclusively the possibility of subclinical hyperthyroidism and comprehensive thyroid test will be undertaken thereof. Plan of management as discussed with the patient. Staff will obtain comprehensive thyroid hormone profile with a total and free T4 and TSH to confirm the presence of any kind of subclinical hyperthyroidism if at all possible. We will obtain thyroid antibodies with thyroid peroxidase and thyroglobulin antibodies to confirm *------*. We will also obtain serum chemistries and supplement accordingly as needed. There is no indication at this time for any kind of thyroid pharmacotherapy. We will follow with you. Mariela Young MD
[2016-11-15] MEDS: Apap-Butalbital-Caffeine 325-50-40mg Tab PO PRN ×2 (05:11→14:34)
--- NOTE | 2016-11-15 06:06 | CP.PCM.PN ---
Subjective - Date & Time of Evaluation Date of Evaluation: 11/15/16 Time of Evaluation: 06:06 - Subjective Subjective: Patient was seen at bedside with her primary nurse. An order for drug screening requested by nurse because she felt that patient is lethargic. Patient is lethargic, hard to wake up. Finally , she woke up , stated that she is very tired, could not get enough rest , has been here for a week, can not sleep. She is oriented to place,time. Medical record was reviewed. This 51 year old woman was admitted with history of syncopal episode. Has PMH of HTN, migraine , numbness of face, appendectomy, tonsillectomy. Objective - Vital Signs/Intake and Output Vital Signs (last 24 hours): Temp Pulse Resp BP Pulse Ox 98.9 F 55 L 20 179/93 H 95 11/15/16 00:01 11/15/16 02:00 11/15/16 00:01 11/15/16 00:11 11/15/16 00:01 Intake and Output: 11/14/16 11/15/16 18:59 06:59 Intake Total 120 Output Total 500 Balance -380 - Medications Medications: Current Medications Acetaminophen/Butalbital/Caffeine (Fioricet) 1 tab PO Q4H PRN PRN Reason: migraine Last Admin: 11/15/16 05:11 Dose: 1 tab Famotidine (Pepcid) 40 mg PO [facility] Last Admin: 11/14/16 21:46 Dose: 40 mg Fludrocortisone Acetate (Florinef) 0.1 mg PO 0800,1600 [facility] Last Admin: 11/14/16 17:13 Dose: 0.1 mg Gabapentin (Neurontin) 300 mg PO TID [facility] PRN Reason: Protocol Hydralazine HCl (Apresoline) 10 mg PO QID PRN PRN Reason: for SBP>170 and diastolic>100 Last Admin: 11/15/16 00:11 Dose: 10 mg Sodium Chloride (Sodium Chloride 0.9%) 1,000 mls @ 50 mls/hr IV .Q20H [facility] Last Admin: 11/15/16 02:00 Dose: 50 mls/hr Zonisamide (Zonegran) 100 mg PO [facility] Last Admin: 11/14/16 21:46 Dose: 100 mg - Labs Labs: 11/14/16 00:07 11/14/16 00:07 PT 10.5 Seconds (9.9-11.8) 11/07/16 18:50 INR 0.97 (0.93-1.08) 11/07/16 18:50 APTT 25.1 Seconds (23.7-30.8) 11/07/16 18:50 - Constitutional Appears: Well, In Acute Distress - Head Exam Head Exam: ATRAUMATIC, NORMAL INSPECTION, NORMOCEPHALIC - Eye Exam Eye Exam: Normal appearance - ENT Exam ENT Exam: TM's Normal Bilaterally - Neck Exam Neck Exam: Normal Inspection - Respiratory Exam Respiratory Exam: NORMAL BREATHING PATTERN - Cardiovascular Exam Cardiovascular Exam: absent: JVD - GI/Abdominal Exam GI & Abdominal Exam: absent: Distended - Rectal Exam Rectal Exam: Deferred - Exam Additional comments: Deferred. - Extremities Exam Extremities Exam: Normal Inspection - Back Exam Back Exam: NORMAL INSPECTION - Neurological Exam Neurological Exam: Altered Additional comments: Lethargic. - Psychiatric Exam Psychiatric exam: Depressed - Skin Skin Exam: Normal Color Assessment and Plan - Assessment and Plan (Free Text) Assessment: Lethargy. Syncope. Bradycardia. Anemia. Hx Lymph node cancer. Plan: Urine drug screening. FSBS. Pulse ox. Observation. Continue present management.
[2016-11-15 06:32] VITALS: O2SAT 97
[2016-11-15 07:29] LABS: HEMOGLOBIN 11.7 gm/dL (12.0-16.0); MEAN CELL VOLUME 91.6 fL (80.0-105.0); MEAN CORPUSCULAR HEMOGLOBIN 29.7 pg (25.0-35.0); MEAN CORPUSCULAR HGB CONC 32.4 g/dl (31.0-37.0); MEAN PLATELET VOLUME 10.9 fl (7.0-11.0); RBC 3.94 10^6/uL (3.5-6.1); RED CELL DISTRIBUTION WIDTH 14.2 % (11.5-14.5); WHITE BLOOD COUNT 7.5 10^3/ul (4.5-11.0)
[2016-11-15 07:38] LABS: ALB/GLOB RATIO 1.1 (1.1-1.8); ALBUMIN 3.9 g/dL (3.0-4.8); ALT/SGPT 49 U/L (7-56); AST/SGOT 47 U/L (15-39); BLOOD UREA NITROGEN 5 mg/dL (7-21); CALCIUM 8.9 mg/dL (8.4-10.5); GFR AFRICAN-AMERICAN > 60; GFR NON-AFRICAN AMERICAN > 60
[2016-11-15 07:57] LABS: FREE T4 0.97 ng/dL (0.78-2.19); T4 9.3 ug/dL (5.5-11.0)
--- NOTE | 2016-11-15 08:05 | CON ---
PULMONARY CONSULTATION DATE: 11/14/2016 REFERRING PHYSICIAN: Alana Junior MD REASON FOR CONSULTATION: Status post syncopal episodes, orthostatic hypotension, daytime sleepy. 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 Also claim to have clavicle blood clot in the remote past. Has a history of removed in the neck area. According to the patient, does not know the pathology. 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 While in the office, she had a headache, dizzy spell, tried to get out of the [place] point attacher area. She blacked out and 911 was not called. Has been a friend brought her to the hospital, found to have orthostatic hypotension. She has been on Fioricet and pain medication seen by neurology and cardiology. According to the patient, she had loud snoring and daytime sleepy and tired. No cough. No sputum production. No chest pain. No nausea. No vomiting. No diarrhea. No leg pain or leg swelling. PAST MEDICAL HISTORY: As per history of present illness. FAMILY HISTORY: Positive for coronary artery disease. 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 No history of smoking or alcohol use. ALLERGIES: NONE KNOWN. MEDICATIONS: She is on hydralazine 10 mg q.i.d. p.r.n., Fioricet 1 tab q. 4 hours p.r.n., Florinef 0.1 mg twice a day, Neurontin 600 mg three times a day, Pepcid 40 mg at bedtime, Reglan 10 mg IV a.c. and bedtime, IV flow normal saline 50 mL per hour, also getting Zonegran 100 mg at bedtime. REVIEW OF SYSTEMS: Presently, no headache, has stuffy nose, rhinitis. No chest pain. No nausea. No vomiting. No diarrhea. Leg pain or leg swelling. Admit to have loud snoring, daytime sleepy and tired. PHYSICAL EXAMINATION: GENERAL: Lying in the bed. No acute distress. VITAL SIGNS: Temperature 98; heart rate is 72; respiratory rate is 20; blood pressure 115/70, blood pressure lying down 133/80, sitting blood pressure 109/76 and standing up was 100/68; and O2 saturation is 98% on nasal cannula. HEENT: Moist mucous membrane. Mallampati score is IV. NECK: Supple. No JVD. LUNGS: Fair air flow with some rhonchi. HEART: S1 and S2. ABDOMEN: Soft and nontender. No organomegaly. EXTREMITIES: No edema. NEUROLOGIC: Awake and alert. Follow simple commands. LABORATORY DATA: Shows hemoglobin 11.2, hematocrit 33.9, WBC 7.3, platelets 255. INR 0.97, PTT is 25. Sodium 139, potassium 3.6, chloride 104, bicarbonate 26, BUN 7, creatinine 0.5, glucose 127, calcium is 8.4, AST 66, ALT 54, alk phos is 99, albumin is 3.5, TSH 0.26, and iron was 157. Urinalysis is unremarkable. CAT scan of the head, MRI was all unremarkable. IMPRESSION AND PLAN: Status post syncopal episode with orthostatic hypotension, may have sleep apnea syndrome, migraines headaches. We will morning cortisol level. Orthostatic hypotension could be secondary to high dose of Neurontin? We will speak to neurology. Try to get Neurontin down little bit. We will do attended sleep study as outpatient, sleep apnea precaution, careful sedation. We will suggest venous Doppler lower extremity. We will order D-dimer for the morning. Thank you and we will follow with you. Alba Myles MD
[2016-11-15] MEDS ORDERED: Potassium Chloride 20 mEq ER Tab PO ONE (10:29)
[2016-11-15 12:12] LABS: CORTISOL AM 4.3 ug/dL (4.46-22.7)
[2016-11-15 15:07] LABS: BARBITURATES, UR POSITIVE (NEGATIVE); BENZODIAZEPINES, UR NEGATIVE (NEGATIVE); OPIATES, UR NEGATIVE (NEGATIVE); PHENCYCLIDINE, UR NEGATIVE (NEGATIVE)
--- NOTE | 2016-11-15 15:17 | PN ---
DATE: 11/15/2016 REASON FOR FOLLOWUP: Syncope recurrent, orthostatic hypotension. SUBJECTIVE: The patient is sitting on bedside. Denies any dizziness, had dizziness day before yesterday, but no more dizziness. OBJECTIVE FINDINGS: Sitting comfortable, blood pressure still orthostatic hypotension, though baseline blood pressures elevated. PHYSICAL EXAMINATION VITAL SIGNS: Temperature afebrile, heart rate 55, blood pressure 176/102. Orthostatic blood pressure as follows, lying blood pressure 176/105, sitting 166/99, and standing dropped to 132/66 at 6:30 a.m. At 10 a.m. blood pressure lying 160/93, sitting 140/96, standing 110/72. HEENT: PERRLA. Extraocular muscles intact. NECK: Supple. No carotid bruits. No thyromegaly. CHEST: Clear to auscultation. HEART: S1 and S2 regular. ABDOMEN: Soft. EXTREMITIES: Clubbing and cyanosis negative. LABORATORY DATA: Blood workup as follows: WBC 7.5, hemoglobin 11 , hematocrit 36.1, platelet count 271. Chemistries shows sodium 141, potassium 3.5, chloride 105, carbon dioxide 26, anion gap of 14, BUN 5, and creatinine 0.5. Total protein 7.3, albumin 3.9, albumin-globulin ratio is 1.1. IMPRESSION: Orthostatic hypotension, still the patient on 50 mmHg in the standing, but not on sitting. Syncope recurrent secondary to orthostatic hypotension, those improving the patient is on currently on Florinef and IV fluid, but the patient is still on gabapentin and Zonegran. RECOMMENDATION: We will discuss with neurologist, left a message to discontinue Zonegran as well as Neurontin. Awaiting for the response. Also called [facility] to get input for the treatment of this possible hypotension. For the time being, we will continue stockings. The patient took it off or was taken off after the patient had rapid response two days ago, so we will resume back ELVA stocking. Continue IV fluid. Continue Florinef. Discontinue Zonegran. Discontinue gabapentin. Monitor possible hypotension. Routinely, awaiting for the input from drawing in machine tender helper, [facility] as well as from neurologist. Theoretically, midodrine can be started, but since the patient has baseline elevated blood pressure 160/93, now in the morning was 176/106, it can increase more hypertension, so we will try to avoid now. We will follow with you. Thank you Dr. Junior for providing me the opportunity in taking care of patient, Ann Magaña. We will supplement potassium. We will follow with you. Alba Gonzalez MD
--- NOTE | 2016-11-15 16:36 | CARD ---
APPROVED REPORT EKG Measurement Heart [id number] <Conclusion> Sinus bradycardia Otherwise normal ECG
[2016-11-15 16:55] VITALS: BP 125/85; RESP 20; TEMP 98.3
[2016-11-15 19:08] VITALS: PULSE 50
--- NOTE | 2016-11-15 19:51 | US ---
HISTORY: Leg pain and swelling. Evaluate for DVT PHYSICIAN(S): Wiley Yip MD. TECHNIQUE: Duplex sonography and color-flow Doppler with graded compression were used to evaluate the deep venous systems of both lower extremities. FINDINGS: The visualized deep venous systems of both lower extremities are sonographically normal and compressible. Normal wave forms and augmentation are seen. There is no sonographic evidence for deep venous thrombosis in the visualized segments of both lower extremities. IMPRESSION: No sonographic evidence for deep venous thrombosis in the visualized segments of both lower extremities.
--- NOTE | 2016-11-15 22:18 | CP.PCM.PN ---
Subjective - Date & Time of Evaluation Date of Evaluation: 11/15/16 Time of Evaluation: 22:18 - Subjective Subjective: Patient was seen at bedside. She wants to leave. She refused to sign AMA paper. A call was placed to Dr. Junior. She left before can call back. States that she has been here for one week, no body is communicating anything, she is not getting her xanaflex neurontin , so she wants to leave.Told her to wait until we call Dr. Gonzalez and talk to him about medicine, she wouldn't wait for that and left in anger ,using abusive words. A refusal form was signed by me and two other nurses and was attached to hard copy of chart. Objective - Vital Signs/Intake and Output Vital Signs (last 24 hours): Temp Pulse Resp BP Pulse Ox 98.3 F 50 L 20 125/85 97 11/15/16 16:55 11/15/16 18:00 11/15/16 16:55 11/15/16 16:55 11/15/16 06:00 Intake and Output: 11/15/16 11/16/16 18:59 06:59 Intake Total 600 Balance 600 - Medications Medications: Current Medications Acetaminophen/Butalbital/Caffeine (Fioricet) 1 tab PO Q4H PRN PRN Reason: migraine Last Admin: 11/15/16 14:34 Dose: 1 tab Cosyntropin (Cortrosyn) 0.25 mg IV ONCE ONE Stop: 11/16/16 05:31 Famotidine (Pepcid) 40 mg PO HS [facility] Last Admin: 11/14/16 21:46 Dose: 40 mg Fludrocortisone Acetate (Florinef) 0.1 mg PO 0800,1600 [facility] Last Admin: 11/15/16 18:02 Dose: 0.1 mg Hydralazine HCl (Apresoline) 10 mg PO QID PRN PRN Reason: for SBP>170 and diastolic>100 Last Admin: 11/15/16 00:11 Dose: 10 mg Sodium Chloride (Sodium Chloride 0.9%) 1,000 mls @ 50 mls/hr IV .Q20H [facility] Last Admin: 11/15/16 02:00 Dose: 50 mls/hr - Labs Labs: 11/15/16 07:00 11/15/16 07:00 PT 10.5 Seconds (9.9-11.8) 11/07/16 18:50 INR 0.97 (0.93-1.08) 11/07/16 18:50 APTT 25.1 Seconds (23.7-30.8) 11/07/16 18:50
--- NOTE | 2016-11-16 00:36 | PN ---
DATE: ENDO FOLLOWUP NOTE Room 272. SUBJECTIVE: This is a 51-year-old female with symptomatic orthostatic hypotension, and has had several syncopal episodes and currently undergoing cardiac and neurologic workup at this time. We also obtained baseline endocrine workup as ordered. Her initial TSH was low at 0.26, but the repeat thyroid studies showed the T4 of 9.3 with a TSH of 1.30 and free T4 of 0.97 indicative of *------* called sick euthyroid syndrome that has improved accordingly. However, her serum cortisol was reported today as 4.3 mcg/dL which is absolutely on the low side of normal and so the possibility always of hypoadrenalism or adrenal insufficiency, has to be brought him to the forefront. A Cortrosyn stimulation test will be undertaken as a fasting procedure tomorrow morning. Detailed orders have been written for a fasting and baseline cortisol to be done at 5 a.m. tomorrow morning. Then we follow with a Cortrosyn given as 250 mcg IV push as one dose at 5:30 a.m. followed at 6:30 a.m. one hour later with a both stimulation random cortisol level as ordered. We will obtain serial chemistries to supplement accordingly as needed. We will continue the Florinef given as 0.1 mg b.i.d. as ordered. We will follow and advice accordingly. Mariela Young MD
--- NOTE | 2016-11-16 05:23 | PN ---
PULMONARY PROGRESS NOTE DATE: 11/15/2016 REFERRING PHYSICIAN: Dr. Junior. SUBJECTIVE: She is sitting up in a bed, still feel dizzy, lightheadedness when standing up, headache is little better, still has a numbness of the face. No nausea, no vomiting, no diarrhea. No leg pain or leg swelling. OBJECTIVE: GENERAL: In no acute distress. VITAL SIGNS: Temp is 98, heart rate 63, respiratory rate is 20 and blood pressure lying down 125/85, sitting up is 128/79 and standing up 107/70 and pulse ox 97% on room air. HEENT: Moist mucous membranes. Crowded airway. NECK: Supple. No JVD. LUNGS: Fair airflow with rhonchi. HEART: S1 and S2. ABDOMEN: Soft and nontender. No organomegaly. EXTREMITIES: No edema. NEUROLOGIC: Awake and alert. Follows simple commands. MEDICATIONS: She is on hydralazine 10 mg q.i.d. p.r.n., also getting Cortrosyn 0.25 mg IV given, Fioricet q. 4 hours p.r.n., Florinef 0.1 mg twice a day, Pepcid 40 mg at bedtime and IV flow normal saline 50 mL per hour. LABORATORY DATA: Shows hemoglobin 11.7, hematocrit 36.1 and WBC 7.5. D-dimer 0.83. Sodium 145, potassium 3.5, chloride 105, bicarbonate 26, BUN 5, creatinine 0.5, glucose 118, calcium 8.9, AST 47, ALT 49, alk phos is 89, albumin is 3.9. Cortisone level in the morning 4.3, which is low. TSH is 1.30. V/Q scan done, report is still pending. Venous Doppler of lower extremity shows no evidence of DVT. IMPRESSION AND PLAN: Status post syncopal episode, sleep apnea syndrome, migraine headaches, has orthostatic hypotension. In detail discussion, today the patient admitted she was on high dose of steroids early this year and end of the last year because of paraesthesia and numbness of the left face and neurology at that time recommended, so she may very well have renal insufficiency with low cortisol level. We will ask Dr. Young make a decision how much steroid she need. Also,a D-dimer is little high. Venous Doppler is negative. Awaiting for V/Q scan, sleep apnea precaution, keep head elevated at 45 degree. Continue IV fluids. Case discussed with Dr. Junior in detail. Thank you and we will follow with you. Alba Myles MD
--- NOTE | 2016-11-16 16:27 | NM ---
COMPARISON: 11/07/2016 portable chest TECHNIQUE: 30.0 mCi technetium 99-m DTPA aerosol. 3.0 mCI technetium 99-m MAA administered intravenously. FINDINGS: VENTILATION COMPONENT: Normal. PERFUSION COMPONENT: Normal. IMPRESSION: Lowprobability ventilation perfusion scan for pulmonary embolism.
== END 2016-11-15 23:22 | disposition left against medical advice (07) | DRG 312 ==
LOC: ED 18:11 → ERH 22:51 → 2RSO 11-08 01:41 → OBSVTOIN 11-08 21:06
PROVIDERS: ADMIT Internal Medicine; ATTEND Internal Medicine
DX: I95.1 Orthostatic hypotension (principal); R00.1 Bradycardia, unspecified; R55 Syncope and collapse; I11.9 Hypertensive heart disease without heart failure; G54.0 Brachial plexus disorders; E78.5 Hyperlipidemia, unspecified; F41.1 Generalized anxiety disorder; G43.909 Migraine, unspecified, not intractable, without status migrainosus; E07.81 Sick-euthyroid syndrome; G47.30 Sleep apnea, unspecified; D64.9 Anemia, unspecified; I08.3 Combined rheumatic disorders of mitral, aortic and tricuspid valves; R73.9 Hyperglycemia, unspecified

== ENCOUNTER 2018-03-30 11:24 | Day surgery (SDC) | payer BC, OTHER ==
[2018-01-04 07:02] VITALS: BMI 23.1
[2018-03-30] MEDS ORDERED: Propofol 10 mg/ml Inj (20 ML) ONE (14:47)
[2018-03-30] MEDS ORDERED: Midazolam 2 MG/2 ML VIAL ONE (14:47)
[2018-03-30] MEDS ORDERED: Sodium Chloride 0.9% 1,000 ML IV SCH (16:00)
[2018-03-30 16:44] VITALS: BP 148/88; PULSE 64; RESP 16; TEMP 98.3; O2SAT 100
== END 2018-03-30 17:06 | disposition home or self-care (01) ==
LOC: ENDO 11:24
PROVIDERS: ATTEND Internal Medicine Gastroenterology
DX: Z12.11 Encounter for screening for malignant neoplasm of colon (principal); D12.3 Benign neoplasm of transverse colon; K64.8 Other hemorrhoids
CPT/HCPCS: 45385; 88305; J2001; J2250; J2704; J7030; J7040